=== PATIENT | female | born 1975 | race Caucasian/White ===

== ENCOUNTER 2019-06-19 08:19 | Outpatient (CLI) | payer OTHER, SELFPAY ==
--- NOTE | ~2019-06-19 | XR_ITS ---
EXAMINATION: XR abdomen/kub 1V INDICATION: Microscopic hematuria TECHNIQUE: Supine views of the abdomen were obtained on 2 radiographs. COMPARISON: CT from today FINDINGS: There are phleboliths of the pelvis. No urinary tract calculi are identified. A moderate vo lume of colonic stool is present. A surgical staple line is noted in the right mid abdomen. IMPRESSION: 1. No radiographic correlate for the patient's symptoms. Reviewed, dictated and finalized at location A. IER CHECKER
--- NOTE | ~2019-06-19 | CT_ITS ---
EXAMINATION: CT abdomen pelvis wo/w con DATE: 06/19/2019 09:28 INDICATION: Microscopic hematuria TECHNIQUE: Computed tomography (CT) of the abdomen and pelvis was performed without intravenous contr ast. CT of the abdomen and pelvis was then performed with a total of 130 mL Omnipaque 350 intravenous contrast using a double-bolus technique for simultaneous opacification of the renal parenchyma and r enal collecting system. The dose-length product (DLP) was 1231.18 mGy-cm. Automated exposure control and iterative reconstruction technique were employed. COMPARISON: 02/12/2019 FINDINGS: Minimal dependent atelectasis is present in the lung bases. The heart size is normal. The l iver, spleen, pancreas, and right adrenal gland are normal. There is thickening of the gallbladder fu ndus, consistent with a phrygian cap There is a 9 mm stable adenoma of the left adrenal gland. The ki dneys are unremarkable. No suspicious renal or urothelial lesion is identified. No stones are identif ied in the kidneys, ureters, or bladder. There is no hydronephrosis or hydroureter. The bladder is no rmal in appearance. No pathologically enlarged abdominal or pelvic lymph nodes are identified. There is no free intraperitoneal gas or evidence of bowel obstruction. Again noted are surgical changes of the distal small bowel/cecum. IMPRESSION: 1. No CT correlate for the patient's symptoms. Reviewed, dictated and finalized at location A. IDE DEALER SALES REPRESENTATIVE
== END 2019-06-19 08:20 | disposition home or self-care (01) ==
PROVIDERS: PCP Internal Medicine; Visit Provider Urology
DX: R31.29 Other microscopic hematuria (principal)
CPT/HCPCS: 74018; 74178; Q9967

== ENCOUNTER 2019-07-28 09:08 | Outpatient (CLI) | payer OTHER, SELFPAY ==
[2019-07-28 09:55] LABS: Basophils Percent Auto 0.3 % (0.2-1.2); Eosinophils Absolute Auto 0.1 K/mm3 (0-0.3); Eosinophils Percent Auto 1.7 % (0-4.4); Hematocrit 41.8 % (37.0-47.0); Immature Granulocyte Absolute 0.03 K/mm3 (0.00-0.031); Immature Granulocyte Percent A 0.5 % (0-0.5); Lymphocytes Absolute Auto 1.13 K/mm3 (0.9-3.2); Lymphocytes Percent Auto 18.8 % (18.3-44.2); Mean Corpuscular HGB Conc 33.5 g/dl (32-36); Mean Corpuscular Hemoglobin 35.4 pg (26-34); Mean Corpuscular Volume 105.6 fl (80-100); Mean Platelet Volume 10.6 fl (7.4-10.4); Monocytes Absolute Auto 0.4 K/mm3 (0.1-0.6); Monocytes Percent Auto 5.8 % (2.6-8.5); Neutrophils Absolute Auto 4.4 K/mm3 (1.3-6.7); Neutrophils Percent Auto 72.9 % (45.5-73.1); Platelet Count Result 265 k/mm3 (150-375); Red Blood Count 3.96 M/mm3 (4.2-5.4); Red Cell Distribution Width 13.4 % (11.5-14.5)
[2019-07-28 09:58] LABS: Add Urine Microscopic? YES; Appearance Urine Clear (Clear); Bilirubin Urine Negative (Negative); Blood Urine 1+ (Negative); Color Urine Colorless (Yellow); Glucose Urine UA Negative (Negative); Ketones Urine Negative (Negative); Leukocyte Esterase Ur Negative LEU/UL (Negative); Mucus Urine Rare /lpf; Nitrate Urine Negative (Negative); Protein Urine Negative (Negative); RBC Urine 0-2 /hpf (0-2); Squamous Epithelial Cell Urine Occasional /hpf (Few); Urobilinogen Urine Negative mg/dL (<2.0)
[2019-07-28 10:01] LABS: Specific Grav Ur 1.003 (1.001-1.035)
[2019-07-28 10:11] LABS: Alanine Aminotransferase 34 U/L (4-35); Albumin Level 4.2 g/dL (3.5-5.1); Alkaline Phosphatase 53 U/L (38-126); Aspartate Amino Transferase 28 U/L (14-36); Bilirubin,Total 0.3 mg/dL (0.2-1.3); Blood Urea Nitrogen 9 mg/dL (7-17); Calcium 8.8 mg/dL (8.4-10.2); Carbon Dioxide 30 mmol/L (22-30); Chloride 101 mmol/L (98-107); Cholesterol 129 mg/dL (0-200); Estimated Glomerular Filt Rate > 60; Glucose 89 mg/dL (65-105); HDL Direct 49 mg/dL; Potassium 3.7 mmol/L (3.4-5.0); Sodium 139 mmol/L (137-145); Triglycerides 124 mg/dL (<150)
[2019-07-28 10:21] LABS: LDL Cholesterol Direct 52 mg/dL
[2019-07-28 10:35] LABS: Vitamin D 25 Hydroxy 57.1 ng/mL
== END 2019-07-28 09:09 | disposition home or self-care (01) ==
PROVIDERS: PCP Internal Medicine; Visit Provider Nurse Practitioner
DX: Z13.228 Encounter for screening for other metabolic disorders (principal); Z13.220 Encounter for screening for lipoid disorders; N39.0 Urinary tract infection, site not specified; E55.9 Vitamin D deficiency, unspecified
CPT/HCPCS: 36415; 80053; 80061; 81001; 82306; 85025

== ENCOUNTER 2020-01-21 14:21 | Outpatient (CLI) | payer OTHER, SELFPAY ==
[2020-01-21 14:56] LABS: Add Urine Microscopic? YES; Appearance Urine Clear (Clear); Bacteria Urine Trace /hpf; Bilirubin Urine Negative (Negative); Blood Urine 1+ (Negative); Color Urine Colorless (Yellow); Glucose Urine UA Negative (Negative); Ketones Urine Negative (Negative); Leukocyte Esterase Ur Negative LEU/UL (Negative); Nitrate Urine Negative (Negative); Protein Urine Negative (Negative); Squamous Epithelial Cell Urine Occasional /hpf (Few); Urobilinogen Urine Negative mg/dL (<2.0); WBC Urine 0-3 /hpf
[2020-01-21 14:58] LABS: Specific Grav Ur 1.004 (1.001-1.035)
== END 2020-01-21 14:22 | disposition home or self-care (01) ==
PROVIDERS: PCP Internal Medicine; Visit Provider Nurse Practitioner
DX: R39.9 Unspecified symptoms and signs involving the genitourinary system (principal)
CPT/HCPCS: 81001

== ENCOUNTER 2020-10-03 09:38 | Outpatient (CLI) | payer OTHER, SELFPAY ==
[2020-10-03 10:01] LABS: Basophils Percent Auto 0.6 % (0.2-1.2); Eosinophils Absolute Auto 0.1 K/mm3 (0-0.3); Eosinophils Percent Auto 1.8 % (0-4.4); Hematocrit 38.8 % (37.0-47.0); Hemoglobin 13.3 g/dL (12.0-15.0); Immature Granulocyte Absolute 0.03 K/mm3 (0.00-0.031); Immature Granulocyte Percent A 0.5 % (0-0.5); Lymphocytes Absolute Auto 1.13 K/mm3 (0.9-3.2); Lymphocytes Percent Auto 18.3 % (18.3-44.2); Mean Corpuscular HGB Conc 34.3 g/dl (32-36); Mean Corpuscular Hemoglobin 35.3 pg (26-34); Mean Corpuscular Volume 102.9 fl (80-100); Mean Platelet Volume 10.3 fl (7.4-10.4); Monocytes Absolute Auto 0.6 K/mm3 (0.1-0.6); Monocytes Percent Auto 9.1 % (2.6-8.5); Neutrophils Absolute Auto 4.3 K/mm3 (1.3-6.7); Neutrophils Percent Auto 69.7 % (45.5-73.1); Platelet Count Result 271 k/mm3 (150-375); Red Blood Count 3.77 M/mm3 (4.2-5.4); Red Cell Distribution Width 13.4 % (11.5-14.5); White Blood Count 6.2 K/mm3 (4.5-10.0)
[2020-10-03 10:16] LABS: Alanine Aminotransferase 39 U/L (4-35); Albumin Level 4.1 g/dL (3.5-5.1); Alkaline Phosphatase 45 U/L (38-126); Anion Gap 4 mmol/L (8-16); Aspartate Amino Transferase 32 U/L (14-36); Bilirubin,Total 0.8 mg/dL (0.2-1.3); Blood Urea Nitrogen 9 mg/dL (7-17); Calcium 9.1 mg/dL (8.4-10.2); Carbon Dioxide 30 mmol/L (22-30); Chloride 104 mmol/L (98-107); Cholesterol 120 mg/dL (0-200); Estimated Glomerular Filt Rate > 60; Glucose 89 mg/dL (65-105); HDL Direct 44 mg/dL; Potassium 3.8 mmol/L (3.4-5.0); Sodium 138 mmol/L (137-145); Triglycerides 73 mg/dL (<150)
[2020-10-03 10:27] LABS: LDL Cholesterol Direct 54 mg/dL
[2020-10-03 11:52] LABS: Vitamin D 25 Hydroxy 52.1 ng/mL
== END 2020-10-03 09:39 | disposition home or self-care (01) ==
LOC: ANHLAB 09:43
PROVIDERS: PCP Internal Medicine; Visit Provider Clinical Nurse Specialist
DX: Z13.220 Encounter for screening for lipoid disorders (principal); Z13.228 Encounter for screening for other metabolic disorders; E55.9 Vitamin D deficiency, unspecified; E04.1 Nontoxic single thyroid nodule
CPT/HCPCS: 36415; 80053; 80061; 82306; 84443; 85025

== ENCOUNTER 2021-09-23 08:58 | Outpatient (CLI) | payer OTHER, SELFPAY ==
[2021-09-23 09:14] LABS: Basophils Percent Auto 0.4 % (0.2-1.2); Eosinophils Absolute Auto 0.2 K/mm3 (0-0.3); Eosinophils Percent Auto 2.8 % (0-4.4); Hematocrit 40.8 % (37.0-47.0); Hemoglobin 13.5 g/dL (12.0-15.0); Immature Granulocyte Absolute 0.03 K/mm3 (0.00-0.031); Immature Granulocyte Percent A 0.4 % (0-0.5); Lymphocytes Absolute Auto 1.44 K/mm3 (0.9-3.2); Lymphocytes Percent Auto 21.1 % (18.3-44.2); Mean Corpuscular HGB Conc 33.1 g/dl (32-36); Mean Corpuscular Hemoglobin 35.7 pg (26-34); Mean Corpuscular Volume 107.9 fl (80-100); Mean Platelet Volume 10.2 fl (7.4-10.4); Monocytes Absolute Auto 0.5 K/mm3 (0.1-0.6); Monocytes Percent Auto 7.5 % (2.6-8.5); Neutrophils Absolute Auto 4.6 K/mm3 (1.3-6.7); Neutrophils Percent Auto 67.8 % (45.5-73.1); Platelet Count Result 278 k/mm3 (150-375); Red Blood Count 3.78 M/mm3 (4.2-5.4); Red Cell Distribution Width 13.7 % (11.5-14.5); White Blood Count 6.8 K/mm3 (4.5-10.0)
[2021-09-23 09:29] LABS: Alanine Aminotransferase 20 U/L (4-35); Albumin Level 3.9 g/dL (3.5-5.1); Alkaline Phosphatase 50 U/L (38-126); Anion Gap 4 mmol/L (8-16); Aspartate Amino Transferase 24 U/L (14-36); Bilirubin,Total 0.4 mg/dL (0.2-1.3); Blood Urea Nitrogen 12 mg/dL (7-17); Calcium 8.8 mg/dL (8.4-10.2); Carbon Dioxide 30 mmol/L (22-30); Chloride 104 mmol/L (98-107); Cholesterol 129 mg/dL (0-200); Estimated Glomerular Filt Rate > 60; Glucose 97 mg/dL (65-110); HDL Direct 42 mg/dL; Potassium 4.1 mmol/L (3.4-5.0); Sodium 138 mmol/L (137-145); Triglycerides 90 mg/dL (<150)
[2021-09-23 09:40] LABS: LDL Cholesterol Direct 50 mg/dL
[2021-09-23 09:59] LABS: Vitamin D 25 Hydroxy 54.2 ng/mL
== END 2021-09-23 08:59 | disposition home or self-care (01) ==
LOC: ANHLAB 09:00
PROVIDERS: PCP Internal Medicine; Visit Provider Clinical Nurse Specialist
DX: Z13.228 Encounter for screening for other metabolic disorders (principal); E04.1 Nontoxic single thyroid nodule; Z13.220 Encounter for screening for lipoid disorders; E55.9 Vitamin D deficiency, unspecified
CPT/HCPCS: 36415; 80053; 80061; 82306; 84443; 85025

== ENCOUNTER 2022-10-08 08:29 | Outpatient (CLI) | payer OTHER, SELFPAY ==
[2022-10-08 09:46] LABS: Basophils Percent Auto 0.6 % (0.2-1.2); Eosinophils Absolute Auto 0.2 K/mm3 (0-0.3); Eosinophils Percent Auto 3.8 % (0-4.4); Hematocrit 40.3 % (37.0-47.0); Hemoglobin 13.7 g/dL (12.0-15.0); Immature Granulocyte Absolute 0.01 K/mm3 (0.00-0.031); Immature Granulocyte Percent A 0.2 % (0-0.5); Lymphocytes Absolute Auto 1.63 K/mm3 (0.9-3.2); Lymphocytes Percent Auto 32.7 % (18.3-44.2); Mean Corpuscular Volume 105.8 fl (80-100); Mean Platelet Volume 10.7 fl (7.4-10.4); Monocytes Absolute Auto 0.3 K/mm3 (0.1-0.6); Monocytes Percent Auto 5.2 % (2.6-8.5); Neutrophils Absolute Auto 2.9 K/mm3 (1.3-6.7); Neutrophils Percent Auto 57.5 % (45.5-73.1); Platelet Count Result 349 k/mm3 (150-375); Red Blood Count 3.81 M/mm3 (4.2-5.4); Red Cell Distribution Width 13.4 % (11.5-14.5)
[2022-10-08 10:02] LABS: Alanine Aminotransferase 25 U/L (6-35); Albumin Level 4.3 g/dL (3.5-5.1); Alkaline Phosphatase 54 U/L (38-126); Anion Gap 8 mmol/L (8-16); Aspartate Amino Transferase 24 U/L (14-36); Bilirubin,Total 0.7 mg/dL (0.2-1.3); Blood Urea Nitrogen 9 mg/dL (7-17); Calcium 8.6 mg/dL (8.4-10.2); Carbon Dioxide 29 mmol/L (22-30); Chloride 103 mmol/L (98-107); Cholesterol 123 mg/dL (0-200); Estimated Glomerular Filt Rate > 60; Glucose 94 mg/dL (65-110); HDL Direct 48 mg/dL; Potassium 3.5 mmol/L (3.4-5.0); Sodium 140 mmol/L (137-145); Triglycerides 79 mg/dL (<150)
[2022-10-08 10:14] LABS: LDL Cholesterol Direct 52 mg/dL
[2022-10-08 10:28] LABS: Free T4 Free Thyroxine 0.69 ng/mL (0.78-2.19); Vitamin D 25 Hydroxy 56.1 ng/mL
[2022-10-12 03:45] LABS: Thyroid Peroxidase Antibodies <1 IU/mL (<9)
== END 2022-10-08 08:30 | disposition home or self-care (01) ==
PROVIDERS: PCP Internal Medicine; Visit Provider Clinical Nurse Specialist
DX: E55.9 Vitamin D deficiency, unspecified (principal); Z13.220 Encounter for screening for lipoid disorders; E04.1 Nontoxic single thyroid nodule; K50.919 Crohn's disease, unspecified, with unspecified complications
CPT/HCPCS: 36415; 80053; 80061; 82306; 84439; 84443; 85025; 86376

== ENCOUNTER 2023-10-10 07:20 | Outpatient (CLI) | payer OTHER, SELFPAY ==
[2023-10-10 08:00] LABS: Basophils Percent Auto 0.3 % (0.2-1.2); Eosinophils Absolute Auto 0.1 K/mm3 (0-0.3); Hematocrit 41.3 % (37.0-47.0); Hemoglobin 14.1 g/dL (12.0-15.0); Immature Granulocyte Absolute 0.03 K/mm3 (0.00-0.031); Immature Granulocyte Percent A 0.4 % (0-0.5); Lymphocytes Absolute Auto 1.59 K/mm3 (0.9-3.2); Lymphocytes Percent Auto 22.6 % (18.3-44.2); Mean Corpuscular HGB Conc 34.1 g/dl (32-36); Mean Corpuscular Hemoglobin 35.3 pg (26-34); Mean Corpuscular Volume 103.5 fl (80-100); Mean Platelet Volume 10.5 fl (7.4-10.4); Monocytes Absolute Auto 0.4 K/mm3 (0.1-0.6); Monocytes Percent Auto 5.5 % (2.6-8.5); Neutrophils Absolute Auto 4.9 K/mm3 (1.3-6.7); Neutrophils Percent Auto 70.2 % (45.5-73.1); Platelet Count Result 239 k/mm3 (150-375); Red Blood Count 3.99 M/mm3 (4.2-5.4); Red Cell Distribution Width 14.4 % (11.5-14.5)
[2023-10-10 08:24] LABS: Alanine Aminotransferase 20 U/L (6-35); Albumin Level 4.3 g/dL (3.5-5.1); Alkaline Phosphatase 52 U/L (38-126); Anion Gap 7 mmol/L (4-12); Aspartate Amino Transferase 21 U/L (14-36); Bilirubin,Total 0.7 mg/dL (0.2-1.3); Blood Urea Nitrogen 13 mg/dL (7-17); Carbon Dioxide 25 mmol/L (22-30); Chloride 105 mmol/L (98-107); Cholesterol 130 mg/dL (0-200); Estimated Glomerular Filt Rate > 60; Glucose 100 mg/dL (65-110); HDL Direct 55 mg/dL; Potassium 3.8 mmol/L (3.4-5.0); Sodium 137 mmol/L (137-145); Triglycerides 69 mg/dL (<150)
[2023-10-10 08:35] LABS: LDL Cholesterol Direct 63 mg/dL
[2023-10-10 08:39] LABS: Vitamin D 25 Hydroxy 65.7 ng/mL
== END 2023-10-10 07:21 | disposition home or self-care (01) ==
PROVIDERS: PCP Internal Medicine; Visit Provider Nurse Practitioner
DX: E55.9 Vitamin D deficiency, unspecified (principal); E05.90 Thyrotoxicosis, unspecified without thyrotoxic crisis or storm; Z13.29 Encounter for screening for other suspected endocrine disorder; Z13.220 Encounter for screening for lipoid disorders
CPT/HCPCS: 36415; 80053; 80061; 82306; 84439; 84443; 85025

== ENCOUNTER 2024-03-18 13:55 | Outpatient (CLI) | payer OTHER, SELFPAY ==
[2024-03-18 14:16] LABS: Basophils Percent Auto 0.5 % (0.2-1.2); Eosinophils Absolute Auto 0.1 K/mm3 (0-0.3); Eosinophils Percent Auto 1.4 % (0-4.4); Hematocrit 39.3 % (37.0-47.0); Hemoglobin 13.3 g/dL (12.0-15.0); Immature Granulocyte Absolute 0.04 K/mm3 (0.00-0.031); Immature Granulocyte Percent A 0.5 % (0-0.5); Lymphocytes Absolute Auto 1.92 K/mm3 (0.9-3.2); Lymphocytes Percent Auto 24.1 % (18.3-44.2); Mean Corpuscular HGB Conc 33.8 g/dl (32-36); Mean Corpuscular Hemoglobin 35.7 pg (26-34); Mean Corpuscular Volume 105.4 fl (80-100); Mean Platelet Volume 10.5 fl (7.4-10.4); Monocytes Absolute Auto 0.6 K/mm3 (0.1-0.6); Neutrophils Absolute Auto 5.2 K/mm3 (1.3-6.7); Neutrophils Percent Auto 65.5 % (45.5-73.1); Platelet Count Result 300 k/mm3 (150-375); Red Blood Count 3.73 M/mm3 (4.2-5.4); Red Cell Distribution Width 13.2 % (11.5-14.5)
[2024-03-18 14:25] LABS: Alanine Aminotransferase 34 U/L (6-35); Albumin Level 4.2 g/dL (3.5-5.1); Alkaline Phosphatase 61 U/L (38-126); Anion Gap 7 mmol/L (4-12); Aspartate Amino Transferase 32 U/L (14-36); Bilirubin,Total 0.5 mg/dL (0.2-1.3); Blood Urea Nitrogen 8 mg/dL (7-17); Calcium 8.8 mg/dL (8.4-10.2); Carbon Dioxide 26 mmol/L (22-30); Chloride 105 mmol/L (98-107); Estimated Glomerular Filt Rate > 60; Glucose 104 mg/dL (65-110); Potassium 3.6 mmol/L (3.4-5.0); Sodium 138 mmol/L (137-145)
[2024-03-18 14:48] LABS: Platelet Estimate Adequate (Adequate)
[2024-03-18 14:50] LABS: Schistocytes None Seen
[2024-03-18 14:51] LABS: Free T4 Free Thyroxine 0.81 ng/mL (0.78-2.19); Macrocytosis 1+ (NORMAL)
[2024-03-18 16:57] LABS: Iron 71 ug/dL (37-170)
[2024-03-18 17:07] LABS: Percent Iron Saturation 22 % (20-50)
[2024-03-20 05:58] LABS: Triiodothyronine T3 Free 2.9 pg/mL (2.3-4.2)
== END 2024-03-18 13:56 | disposition home or self-care (01) ==
LOC: ANHLAB 13:57
PROVIDERS: PCP Internal Medicine; Visit Provider Nurse Practitioner
DX: E05.90 Thyrotoxicosis, unspecified without thyrotoxic crisis or storm (principal); R51.9 Headache, unspecified; D64.9 Anemia, unspecified
CPT/HCPCS: 36415; 80053; 82728; 83540; 83550; 84439; 84443; 84481; 85025

== ENCOUNTER 2024-05-27 10:43 | Outpatient (CLI) | payer OTHER, SELFPAY ==
[2024-05-27 12:47] LABS: Add Urine Microscopic? YES; Appearance Urine Clear (Clear); Bacteria Urine None Seen /hpf; Bilirubin Urine Negative (Negative); Blood Urine Trace (Negative); Color Urine Yellow (Yellow); Glucose Urine UA Negative (Negative); Ketones Urine Negative (Negative); Leukocyte Esterase Ur Negative LEU/UL (Negative); Nitrate Urine Negative (Negative); Non Pathogenic Casts 0-2; Protein Urine Negative (Negative); RBC Urine 0-2 /hpf (0-2); Specific Grav Ur 1.004 (1.001-1.035); Squamous Epithelial Cell Urine None Seen /hpf (Few); Urobilinogen Urine 0.2 mg/dL (<2.0); WBC Urine 0-5 /hpf (0-3)
== END 2024-05-27 10:44 | disposition home or self-care (01) ==
LOC: ANHGOSHLAB 10:44
PROVIDERS: PCP Internal Medicine; Visit Provider Nurse Practitioner
DX: R35.0 Frequency of micturition (principal)
CPT/HCPCS: 81001

== ENCOUNTER 2024-05-28 13:09 | Outpatient (CLI) | payer OTHER, SELFPAY ==
[2024-05-30 07:05] LABS: FSH 7.9 mIU/mL
[2024-05-30 07:44] LABS: ANA Cascade Screen NEGATIVE (NEGATIVE)
== END 2024-05-28 13:10 | disposition home or self-care (01) ==
LOC: ANHLAB 13:10
PROVIDERS: PCP Nurse Practitioner; Referring Provider Nurse Practitioner; Visit Provider Student in an Organized Health Care Education/Training Program
DX: N95.1 Menopausal and female climacteric states (principal); M25.50 Pain in unspecified joint
CPT/HCPCS: 36415; 82670; 83001; 84443; 86038; 86225; 86235; 86364

== ENCOUNTER 2024-07-20 12:46 | Outpatient (CLI) | payer OTHER, SELFPAY | END 2024-07-20 12:47 | disposition home or self-care (01) | PROVIDERS: PCP Nurse Practitioner; Visit Provider Nurse Practitioner | DX: R51.9 Headache, unspecified (principal) | CPT/HCPCS: 70553; A9579 ==

== ENCOUNTER 2024-12-11 07:38 | Outpatient (CLI) | payer OTHER, SELFPAY ==
--- OUTSIDE RECORDS SUMMARY | 2024-12-11 07:42 | XMS_ITS | Encounter Summary ---
Author Organization [facility] Address [address] [place] [address] Phone Care Team Providers Care Sulfuric Acid Plant Supervisor Name Role Phone Pravin Lewis DO Primary Care Provider [phone] Encounter Details Date Type Department Care Team (Late st Contact Info) Description 11/10/2024 Results Follow-Up [facility] [address] [place] [address] Medical Office Building [address] [place] [address] Leigha Sheldon MD 1 [facility] [address] [place] [address] CBC without differential, CRP (acute phase), Comprehensive metabolic panel Social History Tobacco Use Types Packs/Day Years Used Date Smoking Tobacco: Former Cigarettes Q uit: 1998 Smokeless Tobacco: Never Alcohol Use Standard Drinks/Week Comments Yes 0 (1 standard drink = 0.6 oz pur e alcohol) very rarely AUDIT-C Answer Date Recorded Q1: How often do you have a drink containing alcohol? Never 03/06/2024 Q2: How many drinks containi ng alcohol do you have on a typical day when you are drinking? Patient does not drink Q3: How often do you have si x or more drinks on one occasion? Never 03/06/2024 Personal Safety Answer Date Recorded Have you ever been in or are you currently in a harmful physical or emotional relationship or is someone making you feel afraid or unsafe? 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 documented in this encounter Plan of Treatment Not on file documented as of this encounter Visit Diagnoses Not on filedocumented in this encounter Care Teams Sulfuric Acid Plant Supervisor Relationship Specialty Start Date End Date Pravin Lewis DO PCP - General 07/06/16 documented as of this encounter
--- OUTSIDE RECORDS SUMMARY | 2024-12-11 07:42 | XMS_ITS | Clinical Summary ---
Author Organization [facility] Address [address] [place] [address] Care Team Providers Care Brew House Supervisor Name Role Phone Pravin Lewis DO Primary Care Provider [phone] Source Comments [facility],non-owned Affiliates and Associated Physician Practices is amultiple site organization consisting of ambulatory clinics and hospital sitesin [place], [place], [place] and [place]. This disclosure is being madepursuant to the Care Everywhere program and may not contain all information available regarding this patient. Last updated 18.[facility] Allergies Active Allergy Reactions Criticality Noted Date Comments Sulfa Drugs Rash Medium 11/28/2017 Medications * Be aware that medications may not be up to date on this document. Alwaysverify current medications with the patient. InFLIXimab (REMICADE IV) Active Mesalamine (LIALDA PO) Active ALLOPURINOL PO Activ e MERCAPTOPURINE PO Ac tive Cetirizine HCl (ZYRTEC PO) Active IBUPROFEN PO Active TP-Ntdwwvuzkkief-V cetaminophen (THERAFLU SEVERE COLD PO) Active Active Problems No known active problems Family History Relation Name Status Comments Father Alive Mother Alive Social History Tobacco Use Types Packs/Day Years Used Date Smoking Tobacco: Former Smokeless Tobacco: Never Alcohol Use Standard Drinks/Week Comments No 0 (1 standard drink = 0.6 oz pur e alcohol) Comments No Sex and Gender Information Value Date Recorded Sex Assigned at Not on file Legal Sex Female 6:06 AM POCKET MARKER Gender Identity Female 08/15/2018 5:53 PM CDT Sexual Orientation Not on file Last Filed Vital Signs Vital Sign Reading Time Taken Comments Blood Pressure 110/78 03/29/2019 9:43 AM POCKET MARKER Pulse 83 03/29/2019 9:43 AM POCKET MARKER Temperature 36.7 C (98.1 F) 03/29/2019 9:43 AM POCKET MARKER Respiratory Rate 16 03/29/2019 9:43 AM POCKET MARKER Oxygen Saturation 96% 03/29/2019 9:43 AM POCKET MARKER Inhaled Oxygen Concentration - - Weight 77.1 kg (170 lb) 03/29/2019 9:43 AM POCKET MARKER Height 162.6 cm (5' 4) 03/29/2019 9:43 AM POCKET MARKER Body Mass Index 29.18 03/29/2019 9:43 AM POCKET MARKER Plan of Treatment Health Maintenance Due Date Last Done Comments COLOGUARD (AGES 45-75) - COLON CA SCREENING 1974 COLON MONITORING 1974 COLONOSCOPY - COLON CA SCREENING 1974 CT COLONOGRAPHY - COLON CA SCREENING 1974 Colorectal Cancer Screening 1974 FIT - COLON CA SCREENING 1974 FLEX SIG - COLON CA SCREENING 1974 LIPID TESTING 1974 HIV SCREENING 1989 HEPATITIS C SCREENING 05/20/1992 DTAP/TDAP/TD VACCINES (1 - Tdap) 1993 HEPATITIS B VACCINE (1 of 3 - 19+ 3-dose series) 1993 SCREENING FOR DIABETES 11/28/2017 MAMMOGRAM 06/20/2022 06/20/2020 COVID-19 VACCINE (1 - 2023- season) 2024 DEPRESSION SCREENING 05/20/2024 PNEUMOCOCCAL VACCINE 50+ (1 of 1 - PCV) 2024 ZOSTER VACCINE (1 of 2) 2024 INFLUENZA VACCINE (#1) 2025 0, 01/11/2019, 02/10/2018, Additional history exists HIB VACCINE Aged Out No longer eligi ble based on patient's age to complete this topic HPV VACCINE Aged Out No longer eligi ble based on patient's age to complete this topic MENINGOCOCCAL (Group B) VACCINE SHARED DECISION-MAKING Aged Out No longer eligible based on patient's age to complete this topic MENINGOCOCCAL GROUPS A/C/Y/W VACCINE Aged Out No longer eligible based on patient's age to complete this topic Insurance [facility] Care Teams Brew House Supervisor Relationship Specialty Start Date End Date Pravin Lewis DO PCP - General Internal Medicine 11/28/17
--- OUTSIDE RECORDS SUMMARY | 2024-12-11 07:42 | XMS_ITS | Clinical Summary ---
Author Organization [facility] Address [address] [place] [id number] Care Team Providers Care Steel Unloader Name Role Phone Unavailable Primary Care Provider Unavailabl e Social History Tobacco Use Types Packs/Day Years Used Date Smoking Tobacco: Never Assessed Comments Unknown Sex and Gender Information Value Date Recorded Sex Assigned at Not on file Legal Sex Female 7:39 PM CDT Gender Identity Not on file Sexual Orientation Not on file Plan of Treatment Health Maintenance Due Date Last Done Comments Cervical Cancer Screening Pa p Smear (Age 30 to 64) Every 3 Years 1974 Colorectal Cancer Screening Colonoscopy (10 Years) 1974 Annual Physical 1977 Hepatitis C 1992 DTaP, Tdap and Td Vaccines ( 1 - Tdap) 1993 Hepatitis B Vaccines (1 of 3 - 19+ 3-dose series) 1993 Cervical Cancer Screening Pa p with HPV Testing (Age 30 to 64) Every 5 Years 2004 Cervical Cancer Screening with HPV 2004 Mammogram Screening 2014 COVID-19 Vaccine ( - 2023-2 5 season) 2024 Pneumococcal Vaccine: 50+ Ye ars (1 of 1 - PCV) 2024 Zoster Vaccines (1 of 2) 2024 Meningococcal B Vaccine Aged Out No l onger eligible based on patient's age to complete this topic Meningococcal Vaccine Aged Out No noel hubert eligible based on patient's age to complete this topic RSV Immunizations Under 20 Months Aged Out No longer eligible based on patient's age to complete this topic
--- OUTSIDE RECORDS SUMMARY | 2024-12-11 07:42 | XMS_ITS | Clinical Summary ---
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 Gender Identity Not on file Sexual Orientation Not on file Plan of Treatment Health Maintenance Due Date Last Done Comments Hepatitis C Virus (HCV) Screening 1974 TdaP Immunization 1974 Hepatitis B Immunization (1 of 3 - 19+ 3-dose series) 1993 Pap Smear 1995 Cervical Cancer Screening (CCS) 2004 HPV/Cotest 2004 Cologuard 2019 Colonoscopy 2019 Colorectal Cancer Screening 2019 Immunochemical Fecal Occult Blood 2019 SARS-COV-2 Immunization ( season) 2024 06/28/2021, 12/27/2020, 12/06/2020 Pneumococcal Immunization (50+ years) (1 of 1 - PCV) 2024 Zoster Immunization (1 of 2) 2024 Influenza Immunization (#1) 2025 09/0 10/2019, 01/11/2019, 02/10/2018, Additional history exists Respiratory Syncytial Virus (RSV) Immunization (Adult) (1 - 1-dose 75+ series) 2049 Human Papillomavirus (HPV) Immunization Aged Out No longer eligible based on patient's age to complete this topic Meningococcal Immunization (ACWY) Aged Out No longer eligible based on patient's age to complete this topic Rotavirus Immunization Aged Out No lo nger eligible based on patient's age to complete this topic
--- OUTSIDE RECORDS SUMMARY | 2024-12-11 07:42 | XMS_ITS | Referral Summary ---
Author Organization [facility] Address [address] [place] [address] Care Team Providers Care Curriculum Specialist Name Role Phone Pravin Lewis DO Primary Care Provider [phone] Encounters Date Type Department Care Team Description 5 Results Follow-Up [facility] Gastroenterology [address] [place] [address] Medical Office Building [address] [place] [address] Leigha Sheldon MD CBC without differential, CRP (acute phase), Comprehensive metabolic panel 5 12:30 PM CDT Lab [facility] Endocrinology Metabolism and Lipid [facility] 5th [place] [address] [place] [id number] Crohn's disease of ileum with complication (HCC) [K50.019] (Primary Dx) 5 9:30 AM CDT Infusion [facility] Infusion Therapy [facility] 5th [place] [address] [place] [phone] Crohn's disease of ileum with complication (HCC) (Primary Dx) 5 Telephone [facility] [address] [place] [id number] Jess Andujar RN 5 Orders Only [facility] Gastroenter[facility] [address] [facility] 12[address] [place] [address] [place] [address] Myesha Flores RN Crohn's disease with complication, unspecified gastrointestinal tract location (HCC) (Primary Dx); High risk medications (not anticoagulants) long-term use; Routine health maintenance 5 Telephone [facility] ([facility]) [address] [place] [address] Bambi Acevedo RN 5 Documentation [facility] [address] [facility] [address]th [place] [address] [place] [address] Daylin Shah MD 5 12:51 PM CDT - 5 11:59 PM CDT Hospital Encounter [facility] [address] [place] [address] Discharge Disposition: Discharge to home or self care 5 1:00 PM CDT Infusion [facility] Infusion Therapy [address] [facility] 5th [place] [address] [place] [address] Crohn's disease of ileum with complication (HCC) (Primary Dx) from Last 3 Months Allergies Active Allergy Reactions Criticality Noted Date Comments Codeine Mental status changes Low Sulfa (Sulfonamide Antibiotics) Hives,Rash Medium 12/2014 Sulfanilamide Unknown Low Medications calcium carbonate-vitamin D3 (CALCIUM 500 + D) 1,250mg (500mg elemental) - 200 units per tablet 1 tablet daily 0 013 Active Lactobacillus acidophilus (PROBIOTIC ORAL) Take by mouth daily before breakfast Active cyclobenzaprine (FLEXERIL) 5 mg tablet Take 1 tablet (5 mg total) by mouth 2 (two) times a day as needed for muscle spasms Active triamcinolone (KENALOG) 0.1 % cream 1 g as needed 020 Active -U 106.5-1 mg capsuleIndications: Crohn's disease of ileum with complication (HCC) TAKE ONE CAPSULE BY MOUTH ONCE DAILY 90 capsule 3 021 Active lutein-zeaxanthin 25-5 mg capsule Take 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 Active traMADoL (ULTRAM) 50 mg tablet Take 1 tablet (50 mg total) by mouth Active tazarotene (AVAGE) 0.1 % cream Apply 1 application topically nightly Active celecoxib (CeleBREX) 200 mg capsule Take 1 capsule (200 mg total) by mouth 2 (two) times a day as needed for pain 022 Active Winlevi 1 % cream as needed 023 Active cyanocobalamin (Vitamin B-12) 100 mcg tablet Take 1 tablet (100 mcg total) by mouth 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 Infused at: [facility] 5C. 40 mL 5 023 Active polyethylene glycol (GoLYTELY) 236-22.74-6.74 -5.86 gram solution MIX AND DRINK INSTRUCTED FOR BOWEL PREP 4000 mL Active Additional Information Patient not taking.Reported on 08/03/2024 butalbital-acetamin ophen-caffeine (ESGIC) 50-325-40 mg per tabletIndications:N onintractable headache, unspecified chronicity pattern, unspecified headache type Take 1 tablet by mouth every 4 (four) hours as needed for headaches 10 tablet Active hyoscyamine (LEVSIN) 0.125 mg tabletIndications:C rohn's disease of ileum with complication (HCC) Take 1 tablet (0.125 mg total) by mouth every 4 (four) hours as needed for cramping or diarrhea 30 tablet 2 024 Active hydrOXYzine (ATARAX) 25 mg tabletIndications:I tching due to drug TAKE 1 TABLET BY MOUTH EVERY 6 HOURS NEEDED FOR ITCHING 120 tablet 024 Active escitalopram (LEXAPRO) 5 mg tablet Take 1 tablet (5 mg total) by mouth daily Active linezolid (ZYVOX) 600 mg tablet Take 1 tablet (600 mg total) by mouth 2 (two) times a day 10 tablet 025 Active allopurinoL (ZYLOPRIM) 100 mg tabletIndications:C rohn's disease with complication, unspecified gastrointestinal tract location (HCC) Take 1 tablet by mouth once daily 90 tablet 025 Active mercaptopurine (PURINETHOL) 50 mg tabletIndications:C rohn's disease of ileum with complication (HCC) Take 1/2 (one-half) tablet by mouth once daily 45 tablet 025 Active Apriso 0.375 gram 24 hr capsuleIndications: Crohn's disease with complication, unspecified gastrointestinal tract location (HCC),High risk medications (not anticoagulants) long-term use Take 1 capsule by mouth twice daily 180 capsule 1 025 Active omeprazole (PriLOSEC) 20 mg capsuleIndications: Crohn's disease of ileum with complication (HCC),Gastroesophag eal reflux disease, unspecified whether esophagitis present TAKE 1 CAPSULE BY MOUTH TWICE DAILY WITH MEALS 180 capsule 025 Active omeprazole (PriLOSEC) 20 mg capsuleIndications: Crohn's disease of ileum with complication (HCC),Gastroesophag eal reflux disease, unspecified whether esophagitis present Take 1 capsule (20 mg total) by mouth 2 (two) times a day with meals 180 capsule 1 025 2024 Discontinued Apriso 0.375 gram 24 hr capsuleIndications: Crohn's disease with complication, unspecified gastrointestinal tract location (HCC),High risk medications (not anticoagulants) long-term use Take 1 capsule by mouth twice daily 180 capsule 025 2024 Discontinued Active Problems Problem Noted Date Diagnosed Date Colon cancer screening 01/08/2024 Cholecystitis 08/03/2022 Overview (08/03/2022): Added automatically from request for surgery [id number] High risk medications (not anticoagulants) long- term use 09/30/2020 Overview (01/07/2024): Currently on IFX and 6MP. Levels drawn 07/2023 showed therapeutic dosing. Myalgia 09/30/2020 Abnormal thyroid blood test 02/10/2019 Crohn's disease of ileum with complication 09/28 Overview (01/07/2024): Year of diagnosis: 2011. Year symptoms began: 2011. Phenotype: Penetrating (B3) with perianal disease. Distribution: ileocolonic (L3) without upper GI disease (L4). Extraintestinal manifestations: erythema nodosum. Complications: TI stricture with transsphincteric perianal fistula. Prior treatments: n/a. Current treatment: IFX, mercaptopurine. Prior surgeries: ileocolonic resection for that ileal stricture with approximately 20 cm of the small bowel removed in May 2014. Endoscopies: 02/2022 colonoscopy showed mucosal remission. Imaging: none. Family History: none. Obesity, diabetes, and hypertension syndrome Overview (08/22/2016): DYSMETABOLIC SYNDROME X Non-toxic multinodular goiter 10/03/2013 Overview (08/24/2016): NONTOX MULTINODUL GOITER Immunizations Immunization Administration Dates Next Due Hep B Vaccine 04/03/2012,11/07/2011,10/04/2011 Hep B, Adolescent or Pediatric 04/03/2012 Influenza, Quadrivalent, Spl it, Intramuscular 01/11/2019 Influenza, Quadrivalent, Spl it, Preservative Free, Intramuscular 01/24/2020,01/11/2019,02/10/2018 Influenza, Trivalent, High D ose, Split, Preservative Free, Intramuscular 02/26/2016 Influenza, Trivalent, IM (MDV) 08/05/2012 Influenza, Trivalent, Preser vative Free, Intramuscular 02/25/2016,03/12/2015 Pfizer SARS-CoV-2 Monovalent Vaccination (12+ Yrs) PURPLE 12/27/2020,12/06/2020 Pneumococcal Conjugate PCV 13 01/31/2017 Pneumococcal Polysaccharide PPV23 07/10/2023,,07/31/2012 ZOSTER Recombinant 10/26/2022,07/09/2022 Social History Tobacco Use Types Packs/Day Years Used Date Smoking Tobacco: Former Cigarettes Q uit: 1998 Smokeless Tobacco: Never Tobacco Cessation:Counseling Given: Not Answered Alcohol Use Standard Drinks/Week Comments Yes 0 [...] on file 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 Gender Identity Female 11/02/2021 7:32 AM CDT Sexual Orientation Straight 11/02/2021 7: 32 AM CDT Last Filed Vital Signs Vital Sign Reading Time Taken Comments Blood Pressure 133/87 11/06/2024 9:27 AM CDT Pulse 100 11/06/2024 9:27 AM CDT Temperature 36.9 C (98.4 F) 11/06/2024 9:27 AM CDT Respiratory Rate 14 11/06/2024 9:27 AM CDT Oxygen Saturation 95% 11/06/2024 9:42 AM CDT Inhaled Oxygen Concentration - - Weight 85.2 kg (187 lb 12.8 oz) 11/06/2024 9:27 AM CDT Height 162.6 cm (5' 4) 08/03/2024 9:45 AM CDT Body Mass Index 32.24 08/03/2024 9:45 AM CDT Plan of Treatment Not on file Medical Devices Implanted Type Area Community Support Worker Device Identifier Shelf Expiration Date Model / Serial / Lot Clip Med-Lg Plymr Internal Clips 6 Cartrdg Symmetry [place] - [id number] Implanted:Qty: 1 on 09/20/2022 by Wing Lee MD PhD at [facility] Clip N/A: Abdomen [employer] 01/19/2024 [id number] / / [id number] Procedures Procedure Name Priority Date/Time Associated Diagnosis Comments COMPREHENSIVE METABOLIC PANEL Routine 11/06/2024 9:39 AM CDT Crohn's disease of ileum with complication (HCC) CRP (ACUTE PHASE) Routine 11/06/2024 9:3 9 AM CDT Crohn's disease of ileum with complication (HCC) CBC WITHOUT DIFFERENTIAL Routine 11/06/2024 9:39 AM CDT Crohn's disease of ileum with complication (HCC) TB TEST, QUANTIFERON GOLD Routine 09/18/2024 2:00 PM CDT Crohn's disease with complication, unspecified gastrointestinal tract location (HCC) High risk medications (not anticoagulants) long-term use Routine health maintenance T-SPOT.TB Routine 09/11/2024 12:51 PM CDT Crohn's disease of ileum with complication (HCC) SCREENING MAMMOGRAM BILATERAL W SEGUNDO Schedule Routine, Read Routine (OP Routine) 06/23/2024 12:42 PM POULTRYMAN Screening mammogram, encounter for COLONOSCOPY 03/06/2024 7:59 AM CDT from Last 3 Months or Most Recently Relevant to Health Maintenance Results * (ABNORMAL) CBC without differential (11/06/2024 9:39 AM CDT) White Blood Count 6.9 3.6 - 11.2 K/uL [facility] RBC 3.75 3.63 - 4.92 M/uL [facility] Hemoglobin 13.4 11.9 - 15.5 g/dL [facility] Hematocrit 39.6 36.1 - 44.3 % [facility] MCV 105.4(H) 80.0 - 97.6 fL [facility] MCH 35.7(H) 26.7 - 33.7 pg [facility] MCHC 33.9 32.7 - 35.5 g/dL [facility] RBC Dist Width 14.5 12.3 - 17.0 % [facility] Platelet Count 314 140 - 440 K/uL [facility] MPV 9.4 6.8 - 10.4 fL [facility] Blood 11/06/2024 9:39 AM CDT 11/06/2024 10:54 AM CDT Leigha Sheldon MD LAB BLOOD ORDERABLES F inal Result Performing Organization Address City/[facility] Co de Phone Number [facility] * CRP (acute phase) (11/06/2024 9:39 AM CDT) C-Reactive Protein, Acute <3.0 <5.0 mg/L [facility] Blood 11/06/2024 9:39 AM CDT 11/06/2024 10:54 AM CDT Leigha Sheldon MD LAB BLOOD ORDERABLES F inal Result Performing Organization Address [facility] Co de Phone Number [facility] * Comprehensive metabolic panel (11/06/2024 9:39 AM CDT) Total Protein 7.3 6.1 - 8.4 g/dL [facility] Albumin 3.8 3.5 - 5.2 g/dL [facility] Calcium 9.0 8.6 - 10.3 mg/dL [facility] BUN 9 7 - 23 mg/dL [facility] Total Bilirubin 0.63 0.20 - 1.40 mg/dL [facility] Alk Phos, Total 69 35 - 129 IU/L [facility] AST (SGOT) 22 11 - 47 IU/L [facility] ALT (SGPT) 30 6 - 53 IU/L [facility] Creatinine 0.73 0.60 - 1.10 mg/dL [facility] Sodium 138 135 - 145 mmol/L [facility] Potassium 3.4 3.3 - 5.1 mmol/L [facility] Chloride 101 95 - 107 mmol/L [facility] CO2 Content 23 21 - 29 mmol/L [facility] Glucose 96 64 - 99 mg/dL [facility] Comment: NONFASTING GLUCOSE RANGE = 64-199 mg/dL FASTING GLUCOSE 64 - 99 = NORMAL FASTING GLUCOSE 100 - 125 = IMPAIRED FASTING GLUCOSE FASTING GLUCOSE >=126 = PROVISIONAL DIAGNOSIS OF DIABETES eGFR >90.0 >60.0 mL/min/1.[address] [facility] Blood 11/06/2024 9:39 AM CDT 11/06/2024 10:54 AM CDT us Leigha Sheldon MD LAB BLOOD ORDERABLES F inal Result [facility] * TB test, quantiferon gold (09/18/2024 2:00 PM CDT) Pathologist [facility] QuantiFERON Incubation Incubation performed. [facility] - 01 QuantiFERON Criteria Comment [facility] - 01 Comment: QuantiFERON-TB Gold Plus is a qualitative indirect test for M tuberculosis infection (including disease) and is intended for use in conjunction with risk assessment, radiography, and other medical and diagnostic evaluations. The QuantiFERON-TB Gold Plus result is determined by subtracting the Nil value from either TB antigen (Ag) value. The Mitogen tube serves as a control for the test. QuantiFERON TB1 Ag Value 0.02 IU/mL [facility] - 01 QuantiFERON TB2 Ag Value 0.01 IU/mL [facility] - 01 QuantiFERON Nil Value 0.01 IU/mL [facility] - 01 QuantiFERON Mitogen Value >10.00 IU/mL [facility] - 01 QuantiFERON-TB Gold Plus Negative Negative [facility] - 01 Comment: No response to M tuberculosis antigens detected. Infection with M tuberculosis is unlikely, but high risk individuals should be considered for additional testing (ATS/IDSA/CDC Clinical Practice Guidelines, 2017). The reference range is an Antigen minus Nil result of <0.35 IU/mL. Chemiluminescence immunoassay methodology Blood 09/18/2024 2:00 PM CDT 09/18/2024 Narrative [facility] - 09/22/2024 4:11 PM CDT Performed at: - [address] [id number] Account Executive: Steve Vincent PhD, Phone: [phone] Leigha Sheldon MD LAB BLOOD ORDERABLES F inal Result Performing Organization Address City/[facility]/ZIP Co de Phone Number [facility] - 01 * T-SPOT.TB Blood (09/11/2024 12:51 PM CDT) [facility] T-SPOT.TB BORDERLINE [facility] Comment: Normal Value: Negative The patient's test result cannot be definitively classified as positive or negative. Retesting of the patient is recommended although there is no set guideline established for the time interval between an initial borderline result and a retest. The T-SPOT.TB is a diagnostic aid. If the test result remains borderline upon retesting, other diagnostics and/or epidemiologic information should be used to help determine the Mycobacterium tuberculosis infection status of the patient. The T-SPOT.TB test is qualitative and results are reported as positive, borderline or negative, given that the test controls perform as expected. In line with the Centers for Disease Control and Prevention's 2010 recommendation to report quantitative measurements alongside the qualitative result, the laboratory provides spot counts for informational purposes only. The T-SPOT.TB test should not be interpreted as a quantitative test. T-SPOT.TB Panel A Spot Count 3 [facility] T-SPOT.TB Panel B Spot Count 7 [facility] T-SPOT.TB Negative Control Passed [facility] T-SPOT.TB Positive Control Passed [facility] Comment: Test Performed at: [facility], [facility] [place] [address] POLI WORKMAN,PHD Blood 09/11/2024 12:5 1 PM CDT 09/11/2024 3:42 PM CDT Leigha Sheldon MD LAB MICROBIOLOGY - GEN ERAL ORDERABLES Final Result Performing Organization Address City/[facility]/ZIP Co de Phone Number [facility] Department [place] [address] * (ABNORMAL) Screening Mammogram Bilateral W Segundo (06/23/2024 12:42 PM POULTRYMAN) Anatomical Region Laterality Modality Breast Bilateral Mammography 06/23/2024 1:09 PM POULTRYMAN Impressions 06/23/2024 1:09 PM POULTRYMAN New grouped amorphous calcifications in the 6:00 left breast. Additional imaging recommended. FINAL ASSESSMENT: BI-RADS Category 0: Incomplete - Need Additional Imaging Evaluation. RECOMMENDATION: Findings in the left breast require additional evaluation. A diagnostic mammogram of the left breast is recommended at this time. Electronically signed by: SELINA SINGH MD Narrative 06/23/2024 1:09 PM POULTRYMAN EXAMINATION: BILATERAL SCREENING MAMMOGRAM COMPARISON: All prior mammograms dating back to 2018. TECHNIQUE: Full-field 2D and digital breast tomosynthesis (DBT) images were obtained. CAD was utilized. BREAST PARENCHYMAL COMPOSITION: The breasts are heterogenously dense, which may obscure small masses. FINDINGS: There are new grouped amorphous calcifications in the 6:00 left breast. No new suspicious abnormality in the right breast. us Self Screening Mammogram IMG MAMMO PROCEDURES Fi nal Result * Colonoscopy (03/06/2024 7:59 AM CDT) Anatomical Region Laterality Modality Other Narrative Procedure Note Leigha Sheldon MD - 03/06/2024 7:59 AM CDT ENDOSCOPY LAB Patient Name: Alex Slade Procedure Date: 03/06/2024 7:59 AM Date of : 1975 Admit Type: Outpatient Age: 48 Gender: Female Attending MD: Leigha Sheldon M.D. Room: [facility] ENDOSCOPY ROOM 05 Note Status: Finalized Procedure: Colonoscopy Indications: High risk colon cancer surveillance: Crohn'scolitis of 8 (or more) years duration with one-third (ormore) of the colon involved. Inflectra every 8 weeks,6-MP 25 mg daily, allopurniol 100 mg daily Providers: Leigha Sheldon M.D. Referring MD: Leigha Sheldon M.D. Medicines: Monitored Anesthesia Care Complications: No immediate complications. Estimated Blood Loss: Estimated blood loss: none. Procedure: Pre-Anesthesia Assessment: - Immediately prior to administration ofmedications, the patient was re-assessed for adequacy to receive sedatives. The benefits, risks and alternatives of theprocedure and sedation were discussed and informed consentwas obtained. All questions were answered. Please referto the signed informed consent document in the medical record. The scope was passed under direct vision.The [id number] was introduced through the anusand advanced to the terminal ileum. The colonoscopy was performed without difficulty. The patient tolerated the procedure well. The quality of the bowel preparation was adequate. Findings: The perianal and digital rectal examinations were normal. Patent ileocolonic anastomosis The charlie-terminal ileum appeared normal up to 10 cm. The colon (entire examined portion) appeared normal. Impression: - Mucosal remission - Patent ileocolonic anastomosis Recommendation: - Continue current therapy - Repeat colonoscopy in 2 years for surveillance. Electronically Signed by Leigha Sheldon M.D. Leigha Sheldon M.D. 03/06/2024 8:13:28 AM Number of Addenda: 0 Note Initiated On: 03/06/2024 7:59 AM Leigha Sheldon MD ENDOSCOPY PROCEDURES F inal Result from Last 3 Months or Most Recently Relevant to Health Maintenance Insurance [facility] H[facility]/PPO Address: [place] [address] GENERIC COPAY ASSIST [facility] HMO/PPO Address: [address] [place] [address] [place] [facility] CHOICE PLUS [facility] HMO/PPO Address: [address] [place] [address] Advance Directives For more information, please contact: [phone] * Full Code (Latest Code Status on File) Date Activated Date Inactivated Comments 03/06/2024 7:11 AM 03/06/2024 2:36 PM * Full Code Date Activated Date Inactivated Comments 03/02/2022 6:35 AM 03/02/2022 12:48 PM * Full Code Date Activated Date Inactivated Comments 03/17/2021 6:24 AM 03/17/2021 12:26 PM * Full Code Date Activated Date Inactivated Comments 12/09/2020 8:35 AM 12/09/2020 2:24 PM * Full Code Date Activated Date Inactivated Comments 11/14/2018 6:34 AM 11/14/2018 12:31 PM Care Teams Curriculum Specialist Relationship Specialty Start Date End Date Pravin Lewis DO PCP - General 07/06/16
--- OUTSIDE RECORDS SUMMARY | 2024-12-11 07:42 | XMS_ITS | Clinical Summary ---
Author Organization [facility] Address [address] [place] [address] Care Team Providers Care Lunch Counter Manager Name Role Phone Pravin Lewis DO Primary Care Provider [phone] Allergies Active Allergy Reactions Criticality Noted Date [...] mg capsule Take 1 tablet by mouth outreach coordinator before breakfast Active traMADoL (ULTRAM) 50 mg tablet Take 1 tablet (50 mg total) by mouth 021 Active tazarotene (AVAGE) 0.1 % cream Apply 1 application topically nightly 021 Active celecoxib (CeleBREX) 200 mg capsule Take 1 capsule (200 mg total) by mouth 2 (two) times a day as needed for pain 022 Active Winlevi 1 % cream as needed 023 Active cyanocobalamin (Vitamin B-12) 100 mcg tablet Take 1 tablet (100 mcg total) by mouth outreach coordinator before breakfast Active aspirin 81 mg enteric coated tablet Take 1 tablet (81 mg total) by mouth outreach coordinator before breakfast Active polyethylene glycol (MIRALAX) 17 [...] hours as needed for headaches 10 tablet 024 Active hyoscyamine (LEVSIN) 0.125 mg tabletIndications:C rohn's [...] (08/03/2022): Added automatically from request for surgery [id number] High risk medications (not anticoagulants) long- term [...] goiter 10/03/2013 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 5th [place] [address] [place] [address] Crohn's disease of ileum with complication (HCC) [K50.019] (Primary Dx) 5 9:30 AM CDT Infusion [facility] Infusion Therapy [facility] 5th [place] [address] [place] [address] Crohn's disease of ileum with complication (HCC) (Primary Dx) 5 Telephone [facility] Breast [facility] [address] [place] [address] Jess Andujar RN 5 Orders Only [facility] Gastroenterology [address] [facility] 12th [place] [address] [place] [address] Myesha Flores RN Crohn's disease with complication, unspecified gastrointestinal tract location (HCC) (Primary Dx); High risk medications (not anticoagulants) long-term use; Routine health maintenance 5 Telephone [facility] Breast Imaging [facility] [address] [place] [address] Bambi Acevedo RN 5 Documentation [facility] Gastroenterology [address] [facility] 12th [place] [address] [place] [phone] Daylin Shah MD 5 1:00 PM CDT Infusion [facility] Infusion Therapy [address] [facility] 5th [place] [address] [place] [phone] Crohn's disease of ileum with complication (HCC) (Primary Dx) 5 12:51 PM CDT - 5 11:59 PM CDT Hospital Encounter [address] [address] Discharge Disposition: Discharge to home or self care from Last 3 Months Immunizations Immunization Administration Dates Next Due Hep [...] Pneumococcal Polysaccharide PPV23 07/10/2023,,07/31/2012 ZOSTER Recombinant 10/26/2022,07/09/2022 Surgical History Surgery Date Site/Laterality Comments SMALL BOWEL RESECTION 05/20/2014 - 05/19/2015 DILATION AND CURETTAGE OF UTERUS 05/20/2000 - 05/19/2001 COLONOSCOPY CHOLECYSTECTOMY Medical History Medical History Date Comments Crohn's disease (HCC) Former smoker quit 1998 Motion sickness Cholelithiasis Thyroid nodule Chronic constipation Chronic diarrhea Family History Medical History Relation Name Comments Hypertension Brother Family history of hypertension - (Added by TW Conv) Anxiety disorder Child Anxiety - ( Added by TW Conv) Colon polyps Maternal Grandmother Hypertension Mother Family history of hypertension - (Added by TW Conv) PONV Mother Thyroid cancer Mother Diabetes type II Other 1 Family hist ory of Diabetes -Type II; Hypertension Other 2 Family history of Hypertension; Heart disease Sister 1 Hypertension Sister 1 Family history of hypertension - (Added by TW Conv) PONV Sister 1 Hyperlipidemia Sister 2 Family histor y of hypercholesterolemia - (Added by TW Conv) Diabetes Sister 3 Family history of diabetes mellitus - (Added by TW Conv) Glaucoma Sister 4 Family history of glaucoma - (Added by TW Conv) Breast cancer Neg Hx Ovarian cancer Neg Hx Pancreatic cancer Neg Hx Prostate cancer Neg Hx Relation Name Status Comments Brother Child Maternal Grandmother Mother Other 1 Other 2 Sister 1 Sister 2 Sister 3 Sister 4 Social History Tobacco Use Types Packs/Day Years [...] on file 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 Gender Identity Female 11/02/2021 7:32 AM CDT Sexual Orientation Straight 11/02/2021 7: 32 AM CDT Obstetrics History Para Term AB IAB SAB Ectopic Multiple Livin g Live Births 3 1 1 Date Outcome GA Total Labor Labor/2nd/3rd Weight Sex Type Anes PTL Bruna A1 A5 Name Clin Term Last Filed Vital Signs Vital Sign Reading [...] 08/03/2024 9:45 AM CDT Plan of Treatment Health Maintenance Due Date Last Done Comments Albumin Creatinine Ratio, Urine 1974 Cervical Cancer Screening 1974 Depression Screening 1974 Hemoglobin A1C 1974 Hepatitis C Screening 1974 Dilated Eye Exam 1974 Foot Exam 1974 Lipid Panel 1974 DTaP/Tdap/Td Vaccine (1 - Tdap) 1985 Regular Well Visit/Exam 18-64 1992 Covid-19 Vaccine (5 - 2023-2 5 season) 2024 01/12/2022, 06/28/2021, 12/27/2020, Additional history exists Influenza Vaccine (#1) 2025 , 02/16/2021, 01/24/2020, Additional history exists Breast Cancer Screening-Mammogram 06/23/2025 06/23/2024, 06/21/2023, 06/20/2022, Additional history exists eGFR 11/06/2025 11/06/2024, /05/2024, 05/15/2024, Additional history exists Pneumococcal vaccine <65 (4 of 4 - PCV20 or PCV21) 07/10/2028 07/10/2023, 08/01/2017, 01/31/2017, Additional history exists Colon Cancer Screening-Colonoscopy 03/06/2034 03/06/2024, 03/02/2022, 03/17/2021, Additional history exists Zoster Vaccine Completed 10/26/2022, 07/09/2022 Hepatitis B Screening Completed 05/15/2024 , 04/03/2012, 04/03/2012, Additional history exists Medical Devices Implanted Type Area Technical Support Representative Device Identifier Shelf Expiration Date Model / Serial / Lot Clip Med-Lg Plymr Internal Clips 6 Cartrdg Symmetry Alejandra - [id number] Implanted:Qty: 1 on 09/20/2022 by Wing Lee MD PhD at [facility] Clip N/A: Abdomen [employer] 01/19/2024 [id number] / / [id number] Procedures Procedure Name Priority Date/Time Associated Diagnosis [...] Read Routine (OP Routine) 06/23/2024 12:42 PM PLANT MAINTENANCE WORKER Screening mammogram, encounter for COLONOSCOPY 03/06/2024 7:59 [...] ORDERABLES F inal Result Performing Organization Address [facility] Co de Phone Number [facility] * CRP (acute phase) (11/06/2024 9:39 AM CDT) Pathologist [facility] C-Reactive Protein, Acute <3.0 <5.0 mg/L [facility] Blood 11/06/2024 9:39 AM CDT 11/06/2024 10:54 AM CDT Leigha Sheldon MD LAB BLOOD ORDERABLES F inal Result [facility] * Comprehensive metabolic panel (11/06/2024 9:39 AM CDT) [facility] Total Protein 7.3 6.1 - 8.4 g/dL [...] [facility] Glucose 96 64 - 99 mg/dL [facility] Comment: NONFASTING GLUCOSE RANGE = 64-199 mg/dL FASTING GLUCOSE 64 - 99 = NORMAL FASTING GLUCOSE 100 - 125 = IMPAIRED FASTING GLUCOSE FASTING GLUCOSE >=126 = PROVISIONAL DIAGNOSIS OF DIABETES eGFR >90.0 >60.0 mL/min/1.7 3 m2 [facility] Blood 11/06/2024 9:39 AM CDT 11/06/2024 10:54 AM CDT Leigha Sheldon MD LAB BLOOD ORDERABLES F inal Result [facility] * TB test, quantiferon gold (09/18/2024 2:00 PM CDT) [facility] QuantiFERON Incubation Incubation performed. [facility] - 01 [...] - 09/22/2024 4:11 PM CDT Performed at: [address] [place] [id number] Traffic Routing Engineer: Steve Vincent PhD, Phone: [phone] Leigha Sheldon MD LAB BLOOD ORDERABLES F inal Result [facility] - 01 * T-SPOT.TB Blood (09/11/2024 12:51 PM CDT) [facility] T-SPOT.TB BORDERLINE SeeBelow Comment: Normal Value: Negative The patient's test [...] test. T-SPOT.TB Panel A Spot Count 3 [facility] T-SPOT.TB Panel B Spot Count 7 [facility] T-SPOT.TB Negative Control Passed [facility] T-SPOT.TB Positive Control Passed [facility] Comment: Test Performed at: [employer] [address] [place] [address] POLI WORKMAN,PHD Blood 09/11/2024 12:5 1 PM CDT 09/11/2024 3:42 PM CDT Leigha Sheldon MD LAB MICROBIOLOGY - GEN ERAL ORDERABLES Final Result [facility] Department [place] [address] * (ABNORMAL) Screening Mammogram Bilateral W [place] (06/23/2024 12:42 PM PLANT MAINTENANCE WORKER) Anatomical Region Laterality Modality Breast Bilateral Mammography 06/23/2024 1:09 PM PLANT MAINTENANCE WORKER Impressions 06/23/2024 1:09 PM PLANT MAINTENANCE WORKER New grouped amorphous calcifications in the 6:00 left breast. Additional imaging recommended. FINAL ASSESSMENT: BI-RADS Category 0: Incomplete - Need Additional Imaging Evaluation. RECOMMENDATION: Findings in the left breast require additional evaluation. A diagnostic mammogram of the left breast is recommended at this time. Electronically signed by: SELINA SINGH MD Narrative 06/23/2024 1:09 PM PLANT MAINTENANCE WORKER EXAMINATION: BILATERAL SCREENING MAMMOGRAM COMPARISON: All prior mammograms dating back to 2018. TECHNIQUE: Full-field 2D and digital breast tomosynthesis (DBT) images were obtained. CAD was utilized. BREAST PARENCHYMAL COMPOSITION: The breasts are heterogenously dense, which may obscure small masses. FINDINGS: There are new grouped amorphous calcifications in the 6:00 left breast. No new suspicious abnormality in the right breast. Self Screening Mammogram IMG MAMMO PROCEDURES Fi nal Result * Colonoscopy (03/06/2024 7:59 AM CDT) Anatomical Region Laterality Modality Other Narrative Procedure Note Leigha Sheldon MD - 03/06/2024 7:59 AM CDT ENDOSCOPY LAB Patient Name: Alex Slade Procedure Date: 03/06/2024 7:59 AM Date of : 1975 Admit Type: Outpatient Age: 48 Gender: Female Attending MD: Leigha Sheldon M.D. Room: [facility] ENDOSCOPY ROOM 05 Note Status: Finalized [...] The scope was passed under direct vision.The [id number] was introduced through the anusand advanced to [...] Most Recently Relevant to Health Maintenance Insurance [facility] CHO[facility] PLUS [facility] H[facility]/PPO Address: [facility] [address] [place] [address] [employer]IC [employer] [facility]/PPO Address: [place] [address] CHOICE PLUS [facility] H[facility]/PPO Address: [address] [place] [address] Advance Directives For more information, please contact: [phone] * Full Code (Latest Code Status on [...] 6:34 AM 11/14/2018 12:31 PM Care Teams Lunch Counter Manager Relationship Specialty Start Date End Date Pravin Lewis DO PCP - General 07/06/16
[2024-12-11 08:20] LABS: Cholesterol 158 mg/dL (0-200); HDL Direct 48 mg/dL; Triglycerides 179 mg/dL (<150)
== END 2024-12-11 07:39 | disposition home or self-care (01) ==
LOC: ANHLAB 07:40
PROVIDERS: PCP Nurse Practitioner; Visit Provider Nurse Practitioner
DX: E55.9 Vitamin D deficiency, unspecified (principal); Z13.220 Encounter for screening for lipoid disorders
CPT/HCPCS: 36415; 80061; 82306

== ENCOUNTER 2025-03-04 14:25 | Outpatient (CLI) | payer OTHER, SELFPAY ==
--- OUTSIDE RECORDS SUMMARY | 2025-03-04 16:31 | XMS_ITS | Clinical Summary ---
Author Organization [facility] Address [address] [place] [address] Care Team Providers Care Shirt Folding Machine Operator Name Role Phone Unavailable Primary Care Provider [...] Screening with HPV 2004 Mammogram Screening 2014 Pneumococcal Vaccine: 50+ Ye ars (1 of 1 - PCV) 2024 Zoster Vaccines (1 of 2) 2024 COVID-19 Vaccine ( - 2023-2 5 season) 2025 Influenza Adult (#1) 2025 Meningococcal B Vaccine Aged Out No l onger eligible based on patient's age to complete this topic Meningococcal Vaccine Aged Out No noel hubert eligible based on patient's age to complete this topic RSV Immunizations Under 20 Months Aged Out No longer eligible based on patient's age to complete this topic
--- OUTSIDE RECORDS SUMMARY | 2025-03-04 16:31 | XMS_ITS | Clinical Summary ---
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 Gender Identity Not on file Sexual Orientation Not on file Plan of Treatment Health Maintenance Due Date Last Done Comments Hepatitis C Virus (HCV) Screening 1974 TdaP Immunization 1974 Hepatitis B Immunization (1 of 3 - 19+ 3-dose series) 1993 Pap Smear 1995 Cervical Cancer Screening (CCS) 2004 HPV/Cotest 2004 Cologuard 2019 Colonoscopy 2019 Colorectal Cancer Screening 2019 Immunochemical Fecal Occult Blood 2019 Pneumococcal Immunization (50+ years) (1 of 1 - PCV) 2024 Zoster Immunization (1 of 2) 2024 Influenza Immunization (#1) 2025 09/0 10/2019, 01/11/2019, 02/10/2018, Additional history exists SARS-COV-2 Immunization ( season) 2025 06/28/2021, 12/27/2020, 12/06/2020 Respiratory Syncytial Virus (RSV) Immunization (Adult) (1 [...]
--- OUTSIDE RECORDS SUMMARY | 2025-03-04 16:32 | XMS_ITS | Clinical Summary ---
Author Organization [facility] Address [address] [place] [address] Care Team Providers Care Water Pump Servicer Name Role Phone Pravin Lewis DO Primary Care Provider Allergies Active Allergy Reactions Criticality Noted Date [...] mg capsule Take 1 tablet by mouth early childhood before breakfast Active traMADoL (ULTRAM) 50 mg tablet Take 1 tablet (50 mg total) by mouth 021 Active tazarotene (AVAGE) 0.1 % cream Apply 1 application topically nightly 021 Active Winlevi 1 % cream as needed 023 Active cyanocobalamin (Vitamin B-12) 100 mcg tablet Take 1 tablet (100 mcg total) by mouth early childhood before breakfast Active aspirin 81 mg enteric coated tablet Take 1 tablet (81 mg total) by mouth early childhood before breakfast Active polyethylene glycol (MIRALAX) 17 [...] DRINK INSTRUCTED FOR BOWEL PREP 4000 mL 024 Active Additional Information Patient not taking.Reported on [...] times a day 10 tablet 025 Active Apriso 0.375 gram 24 hr capsuleIndications: Crohn's disease with complication, unspecified gastrointestinal tract location (HCC),High risk medications (not anticoagulants) long-term use Take 1 capsule by mouth twice daily 180 capsule 1 025 Active allopurinoL (ZYLOPRIM) 100 mg tabletIndications:C rohn's disease with complication, unspecified gastrointestinal tract location (HCC) Take 1 tablet by mouth once daily 90 tablet 025 Active mercaptopurine (PURINETHOL) 50 mg tabletIndications:C rohn's disease of ileum with complication (HCC) Take 1/2 (one-half) tablet by mouth once daily 45 tablet 025 Active omeprazole (PriLOSEC) 20 mg capsuleIndications: Crohn's disease of ileum with complication (HCC),Gastroesophag eal reflux disease, unspecified whether esophagitis present TAKE 1 CAPSULE BY MOUTH TWICE DAILY WITH MEALS 180 capsule 025 Active celecoxib (CeleBREX) 200 mg capsule Take 1 capsule (200 mg total) by mouth 2 (two) times a day as needed for pain 022 2024 Discontinued omeprazole (PriLOSEC) 20 mg capsuleIndications: Crohn's disease of ileum with complication (HCC),Gastroesophag eal reflux disease, unspecified whether esophagitis present TAKE 1 CAPSULE BY MOUTH TWICE DAILY WITH MEALS 180 capsule 025 2024 Discontinued Active Problems Problem Noted Date Diagnosed Date Colon cancer screening 01/08/2024 Cholecystitis 08/03/2022 Overview (08/03/2022): Added automatically from request for surgery [id number] High risk medications (not anticoagulants) long- term [...] Encounters Date Type Department Care Team Description 02/26/2025 9:30 AM CDT Infusion [facility] [address] [place] [address] Medicine 7th [place] [address] Crohn's disease of ileum with complication (HCC) (Primary Dx) 02/16/2025 10:00 AM CDT Lab [facility] ([facility]) [address] [place] [phone] Polyarthralgia; Chronic back pain, unspecified back location, unspecified back pain laterality; High risk medications (not anticoagulants) long-term use; Rheumatoid factor positive; Inflammatory arthritis 02/16/2025 8:58 AM CDT - 02/16/2025 11:59 PM CDT Hospital Encounter [facility] ([facility]) [address] [place] [address] Polyarthralgia; Chronic back pain, unspecified back location, unspecified back pain laterality Discharge Disposition: Discharge to home or self care 02/16/2025 8:00 AM CDT Office Visit [facility] [address] [place] [address] Advanced Medicine 5th [place] [address] [place] [address] Dinora Reyes NP Rheumatoid factor positive (Primary Dx); Inflammatory arthritis; High risk medications (not anticoagulants) long-term use; Polyarthralgia; Chronic back pain, unspecified back location, unspecified back pain laterality 01/08/2025 Results Follow-Up [facility] ([facility]) [address] [place] [address] Chelly Ogden RN Surgical pathology 01/05/2025 12:35 PM CDT - 01/05/2025 11:59 PM CDT Hospital Encounter [facility] ([facility]) [address] [place] [address] Abnormal mammogram Discharge Disposition: Discharge to home or self care 01/05/2025 10:48 AM CDT - 01/05/2025 11:59 PM CDT Hospital Encounter [facility] ([facility]) [address] [place] [address] Abnormal mammogram Discharge Disposition: Discharge to home or self care 01/01/2025 9:30 AM CDT Infusion [facility] Special[facility]fusion [facility] [address] [place] [address] Advanced [facility] 7th [place] [address] Crohn's disease of ileum with complication (HCC) (Primary Dx) 12/21/2024 10:30 AM CDT - 12/21/2024 11:59 PM CDT Hospital Encounter [facility] ([facility]) [address] [place] [address] Abnormal mammogram Discharge Disposition: Discharge to home or self [...] OF UTERUS 05/20/2000 - 05/19/2001 COLONOSCOPY CHOLECYSTECTOMY BREAST BIOPSY 01/05/2025 Left Medical History Medical History Date Comments Crohn's [...] Not Answered Alcohol Use Standard Drinks/Week Comments Not Currently 0 (1 standard drink = 0.6 oz pur e alcohol) very rarely AUDIT-C Answer Date Recorded Q1: How often do you have a drink containing alcohol? Never 02/16/2025 Q2: How many drinks containi ng alcohol do you have on a typical day when you are drinking? Patient does not drink Q3: How often do you have si x or more drinks on one occasion? Never 02/16/2025 Hunger Vital Sign Answer Date Recorded Within the past 12 months, y ou worried that your food would run out before you got the money to buy more. Never true 02/27/20 25 Within the past 12 months, t he food you bought just didn't last and you didn't have money to get more. Never true 02/26/2025 Personal Safety Answer Date Recorded Have you ever been in or are you currently in a harmful physical or emotional relationship or is someone making you feel afraid or unsafe? 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 Gender Identity Female 11/02/2021 7:32 AM CDT Sexual Orientation Straight 11/02/2021 7: 32 AM CDT Obstetrics History Para Term AB IAB SAB Ectopic Multiple Livin g Live Births 3 1 1 1 Date Outcome GA Total Labor Labor/2nd/3rd Weight Sex Type Anes PTL Bruna A1 A5 Name Clin Term Last Filed Vital Signs Vital Sign Reading Time Taken Comments Blood Pressure 131/88 02/26/2025 11:45 AM CDT Pulse 77 02/26/2025 11:45 AM CDT Temperature 36.5 C (97.7 F) 02/26/2025 9:10 AM CDT Respiratory Rate 18 02/16/2025 7:47 AM CDT Oxygen Saturation 95% 02/26/2025 11:45 AM CDT Inhaled Oxygen Concentration - - Weight 87.6 kg (193 lb 1.6 oz) 02/26/2025 9:10 A M CDT Height 162.6 cm (5' 4) 02/26/2025 9:10 AM CDT Body Mass Index 33.15 02/26/2025 9:10 AM CDT Plan of Treatment Health Maintenance Due Date Last Done Comments Albumin Creatinine Ratio, Urine 1974 Cervical Cancer Screening 1974 Depression Screening 1974 Hemoglobin A1C 1974 Hepatitis C Screening 1974 Dilated Eye Exam 1974 Foot Exam 1974 Lipid Panel 1974 DTaP/Tdap/Td Vaccine (1 - Tdap) 1985 Regular Well Visit/Exam 18-64 1992 Covid-19 Vaccine (2024-2 6 season) 2025 01/12/2022, 06/28/2021, 12/27/2020, Additional history exists Influenza Vaccine (#1) 2025 , 02/16/2021, 01/24/2020, Additional history exists Breast Cancer Screening-Mammogram 06/23/2025 06/23/2024, 06/21/2023, 06/20/2022, Additional history exists eGFR 02/16/2026 02/16/2025, 10/19, 07/10/2024, Additional history exists Pneumococcal vaccine <65 (4 of 4 - PCV20 or PCV21) 07/10/2028 07/10/2023, 08/01/2017, 01/31/2017, Additional history exists Colon Cancer Screening-Colonoscopy 03/06/2034 03/06/2024, 03/02/2022, 03/17/2021, Additional history exists Zoster Vaccine Completed 10/26/2022, 07/09/2022 Hepatitis B Screening Completed 05/15/2024 , 04/03/2012, 04/03/2012, Additional history exists Medical Devices Implanted Type Area Scrap Hoist Operator Device Identifier Shelf Expiration Date Model / Serial / Lot Clip Med-Lg Plymr Internal Clips 6 [facility]g [facility] [id number] Implanted:Qty: 1 on 09/20/2022 by Wing Lee MD PhD at [facility] Clip N/A: Abdomen [employer] 01/19/2024 [id number] / / [id number] swabr Partnership Marker Biospy Site Mini Cork Shape Deployment Device Titanium [employer] Eviva 13cm [id number] - [id number] Implanted:Qty: 1 on 01/05/2025 by Tina Horvath MD at [facility] Left: Breast swabr Partnership [id number] 07[facility]07/2025 [facility] / / [id number] Procedures Procedure Name Priority Date/Time Associated Diagnosis Comments HLA-B*27 TYPING FOR ANKYLOSING SPONDYLITIS Routine 02/16/2025 9:42 AM CDT Polyarthralgia Chronic back pain, unspecified back location, unspecified back pain laterality HLA CLASS I DNA (ABC) RECIPIENT Routine 02/16/2025 9:42 AM CDT Polyarthralgia EGFR Routine 02/16/2025 9:41 AM CDT Polyarthralgia DIFFERENTIAL AUTO Routine 02/16/2025 9:4 1 AM CDT Polyarthralgia CBC WITH AUTO DIFFERENTIAL Routine 02/16/2025 9:41 AM CDT Polyarthralgia COMPREHENSIVE METABOLIC PANEL Routine 02/16/2025 9:41 AM CDT Polyarthralgia ERYTHROCYTE SEDIMENTATION RATE Routine 02/16/2025 9:41 AM CDT Polyarthralgia CRP (ACUTE PHASE) Routine 02/16/2025 9:4 1 AM CDT Polyarthralgia RHEUMATOID FACTOR Routine 02/16/2025 9:4 1 AM CDT Polyarthralgia CYCLIC CITRUL PEPTIDE ANTIBODY, IGG Routine 02/16/2025 9:41 AM CDT Rheumatoid factor positive Inflammatory arthritis SJOGRENS SYNDROME-A ANTIBODY Routine 02/16/2025 9:41 AM CDT Polyarthralgia SJOGRENS SYNDROME-B ANTIBODY Routine 02/16/2025 9:41 AM CDT Polyarthralgia T-SPOT.TB Routine 02/16/2025 9:41 AM CDT High risk medications (not anticoagulants) long-term use XR WRIST RIGHT 3 OR MORE VIEWS Schedule Routine, Read Routine (OP Routine) 02/16/2025 9:25 AM CDT Polyarthralgia XR SACROILIAC JOINTS 3 OR MORE VIEWS Schedule Routine, Read Routine (OP Routine) 02/16/2025 9:25 AM CDT Polyarthralgia Chronic back pain, unspecified back location, unspecified back pain laterality XR FOOT BILATERAL 3 OR MORE VIEWS OF EACH Schedule Routine, Read Routine (OP Routine) 02/16/2025 9:25 AM CDT Polyarthralgia XR HAND BILATERAL 3 OR MORE VIEWS OF EACH Schedule Routine, Read Routine (OP Routine) 02/16/2025 9:25 AM CDT Polyarthralgia XR SPINE LUMBAR 2 OR 3 VIEWS Schedule Routine, Read Routine (OP Routine) 02/16/2025 9:25 AM CDT Polyarthralgia SEGUNDO POST CLIP PLACEMENT LEFT Schedule Routine, Read Routine (OP Routine) 01/05/2025 12:59 PM CDT Abnormal mammogram STEREOTACTIC BREAST BIOPSY LEFT Schedule Routine, Read Routine (OP Routine) 01/05/2025 12:59 PM CDT Abnormal mammogram SURGICAL PATHOLOGY Routine 01/05/2025 11 :00 AM CDT Abnormal mammogram DIAGNOSTIC MAMMOGRAM LEFT W SEGUNDO Schedule Routine, Read Routine (OP Routine) 12/21/2024 11:07 AM CDT Abnormal mammogram SCREENING MAMMOGRAM BILATERAL W SEGUNDO Schedule Routine, Read Routine (OP Routine) 06/23/2024 12:42 PM 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 HISTOTRAC Blood 02/16/2025 9:42 AM CDT 02/17/2025 2:28 PM CDT Narrative HISTOTRAC - 02/17/2025 2:28 PM CDT HLA-B typing is performed using the reverse sequence specific oligonucleotide (r-SSO) method, which is based on an FDA approved IVD kit and validated by the [facility] HLA laboratory. Interpretive comments: HLA-B*27 positivity confers increased risk for ankylosing spondylitis or nonradiographic axial spondyloarthritis. The absence of HLA-B*27 may help rule out these diagnoses Expected: HLA-B*27 has been found in 74% to 89% of patients with either nonradiographic axial spondyloarthritis or ankylosing spondylitis. The absolute risk of spondyloarthritis in persons with HLA-B*27 is 2% to 10%. (N Engl J Med 2016;374:2563-74) Testing performed at the [facility], [facility], [address]th floor, [place], [address]. [facility] # [id number]. Erika Garcia, Ph.D., Sketcher, HLA Laboratory Conor Dowell M.D., Ph.D., Apparel Fashion Designer, HLA Laboratory Milly Kruger, Ph.D., [place] Apparel Fashion Designer, [facility] Current methodology and interpretive comments were last revised on 12/10/2016 [facility] [place] NP LAB BLOOD ORDERABLES Final Result Performing Organization Address [facility] [place] [facility] Co de Phone Number HISTOTRAC * Collection Task for HLA Typing 1 (02/16/2025 9:42 AM CDT) Pathologist [facility] HLA Class I DNA (ABC) Recipient Received Blood 02/16/2025 9:42 AM CDT 02/16/2025 10:03 AM CDT Dinora Reyes NP LAB BLOOD ORDERABLES Final Result Performing Organization Address [facility] [place] [facility] Co de Phone Number [facility] Department [place] [address] * T-SPOT.TB Blood (02/16/2025 9:41 AM CDT) Pathologist [facility] T-SPOT.TB Negative SeeBelow Comment: Normal Value: Negative A negative test result does not exclude the possibility of exposure to or infection with Mycobacterium tuberculosis (M. tuberculosis). Patients with recent exposure to TB infected individuals exhibiting a negative T-SPOT.TB result should be considered for retesting within 6 weeks or if other relevant clinical symptoms indicate. Results from T-SPOT.TB testing must be used in conjunction with each individual's epidemiological history, current medical status, and results of other diagnostic evaluations. The T-SPOT.TB test is qualitative and results [...] quantitative test. T-SPOT.TB Panel A Spot Count 0 [facility] T-SPOT.TB Panel B Spot Count 2 [facility] T-SPOT.TB Negative Control Passed [facility] T-SPOT.TB Positive Control Passed [facility] Comment: Test Performed at: [employer] [facility] [place] [address] POLI WORKMAN,PHD Blood 02/16/2025 9:41 AM CDT 02/16/2025 11:38 AM CDT Dinora Reyes NP LAB MICROBIOLOGY - NERAL ORDERABLES Final Result [facility] Department [place] [address] * eGFR (02/16/2025 9:41 AM CDT) eGFR 82 >=60 mL/min/1. 73 m2 Comment: Interpretive Data Reference Interval Normal >/= 90 mL/min/1.73m2 Mildly decreased* 60 - 89 mL/min/1.73m2 Mildly to moderately decreased 45 - 59 mL/min/1.73m2 Moderately to severely decreased 30 - 44 mL/min/1.73m2 Severely decreased 15 - 29 mL/min/1.73m2 Kidney Failure < 15 mL/min/1.73m2 *Relative to young adult level Estimated glomerular filtration rate is determined by the 2020 CKD-EPI equation recommended by the National Kidney Foundation (A Unifying Approach to GFR Estimation: Recommendations of the NKF-ASK Task Force on Reassessing the Inclusion of Race in Diagnosing Kidney Disease, JASN 2020). The CKD-EPI equation should not be used for patients with unstable renal function and has not been validated in children and those over 70. Current interpretive data was last reviewed 2021. Blood 02/16/2025 9:41 AM CDT 02/16/2025 9:56 AM CDT Dinora Reyes NP LAB BLOOD ORDERABLES Final Result [facility] [place] [address] * Differential, auto (02/16/2025 9:41 AM CDT) Neutrophil abs 4.44 1.50 - 6.50 K/cumm Imm gran abs 0.03 0.00 - 0.10 K/cumm [facility] Lymphocyte abs 1.74 0.80 - 3.30 K/cumm [facility] Monocyte abs 0.43 0.20 - 0.80 K/cumm [facility] Eosinophil abs 0.12 0.00 - 0.50 K/cumm [facility] Basophil abs 0.02 0.00 - 0.10 K/cumm [facility] Neutrophil pct 65.5 % [facility] Comment: Interpretive Data Percent cell count reference ranges are not reported, since discordance with absolute values may lead to misinterpretation of CBC data. Current Interpretive Data was last revised on 2017. Imm gran pct 0.4 % [facility] Comment: Interpretive Data Percent cell count reference ranges are not reported, since discordance with absolute values may lead to misinterpretation of CBC data. Current Interpretive Data was last revised on 2017. Lymphocyte pct 25.7 % [facility] Comment: Interpretive Data Percent cell count reference ranges are not reported, since discordance with absolute values may lead to misinterpretation of CBC data. Current Interpretive Data was last revised on 2017. Monocyte pct 6.3 % [facility] Comment: Interpretive Data Percent cell count reference ranges are not reported, since discordance with absolute values may lead to misinterpretation of CBC data. Current Interpretive Data was last revised on 2017. Eosinophil pct 1.8 % [facility] Comment: Interpretive Data Percent cell count reference ranges are not reported, since discordance with absolute values may lead to misinterpretation of CBC data. Current Interpretive Data was last revised on 2017. Basophil pct 0.3 % [facility] Comment: Interpretive Data Percent cell count reference ranges are not reported, since discordance with absolute values may lead to misinterpretation of CBC data. Current Interpretive Data was last revised on 2017. Blood 02/16/2025 9:41 AM CDT 02/16/2025 9:53 AM CDT Dinora Reyes NP LAB BLOOD ORDERABLES Final Result [facility] [place] [address] * (ABNORMAL) CBC with auto differential (02/16/2025 9:41 AM CDT) WBC 6.78 3.80 - 9.90 K/cumm Hgb 13.2 11.9 - 15.5 g/dL [facility] Hct 38.1 35.6 - 45.5 % [facility] Plt 286 150 - 400 K/cumm [facility] MPV 10.8 9.1 - 12.3 fL [facility] RBC 3.73(L) 3.90 - 5.20 M/cumm [facility] MCV 102.1(H) 81.3 - 96.4 fL [facility] MCH 35.4(H) 27.1 - 33.3 pg [facility] MCHC 34.6 32.3 - 35.7 g/dL [facility] RDW CV 14.0 11.1 - 14.9 % [facility] RDW SD 53.3(H) 35.7 - 48.1 fL [facility] NRBC abs 0.00 0.00 - 0.01 K/cumm [facility] Blood 02/16/2025 9:41 AM CDT 02/16/2025 9:53 AM CDT Dinora Reyes WIREWORKER SUPERVISOR LAB BLOOD ORDERABLES Final Result Performing Organization Address [facility] [place] [facility] de Phone Number [facility] [place] [address] * Cyclic citrul peptide antibody, IgG (02/16/2025 9:41 AM CDT) CCP Ab <0.5 <=2.9 units/mL Comment: Interpretive data Negative: <3 units/mL Positive: > or equal to 3 units/mL Current interpretive data was last revised on 2016. Blood 02/16/2025 9:41 AM CDT 02/16/2025 9:53 AM CDT Dinora Reyes WIREWORKER SUPERVISOR LAB BLOOD ORDERABLES Final Result Performing Organization Address [facility] de Phone Number [facility] [place] [address] * Sjogren's syndrome B ab (02/16/2025 9:41 AM CDT) Anti-EVER, SS-B <0.2 <=0.9 Ab Index Comment: Interpretive Data Negative: < 1.0 Ab Index Positive: > or = 1.0 Ab Index Current interpretive data was last revised on 2016. Blood 02/16/2025 9:41 AM CDT 02/16/2025 9:53 AM CDT Dinora Reyes NP LAB BLOOD ORDERABLES Final Result Performing Organization Address [facility] [place] [facility] Co de Phone Number [facility] [place] [address] * Sjogren's syndrome A ab (02/16/2025 9:41 AM CDT) Anti-EVER, SS-A <0.2 <=0.9 Ab Index Comment: Interpretive Data Negative: < 1.0 Ab Index Positive: > or = 1.0 Ab Index Current interpretive data was last revised on 2016. Blood 02/16/2025 9:41 AM CDT 02/16/2025 9:53 AM CDT Dinora Reyes WIREWORKER SUPERVISOR LAB BLOOD ORDERABLES Final Result Performing Organization Address [facility] Co de Phone Number [facility] Department [place] [address] * Erythrocyte sedimentation rate (02/16/2025 9:41 AM CDT) Pathologist [facility] Erythrocyte sedimentation rate 14 1 - 30 mm/hr Blood 02/16/2025 9:41 AM CDT 02/16/2025 9:53 AM CDT Dinora Reyes WIREWORKER SUPERVISOR LAB BLOOD ORDERABLES Final Result Performing Organization Address [facility] de Phone Number [facility] [place] [address] * Rheumatoid factor (02/16/2025 9:41 AM CDT) Pathologist [facility] Rheumatoid factor, quant <10.0 0.1 - 15.0 IUnits/mL Blood 02/16/2025 9:41 AM CDT 02/16/2025 9:53 AM CDT Dinora Reyes WIREWORKER SUPERVISOR LAB BLOOD ORDERABLES Final Result Performing Organization Address [facility] [place] [facility] de Phone Number [facility] [place] [address] * CRP (acute phase) (02/16/2025 9:41 AM CDT) Pathologist [facility] CRP <0.5 <=10.0 mg/L Blood 02/16/2025 9:41 AM CDT 02/16/2025 9:53 AM CDT Dinora Reyes NP LAB BLOOD ORDERABLES Final Result [facility] [place] [address] * Comprehensive metabolic panel (02/16/2025 9:41 AM CDT) Sodium 141 135 - 145 mmol/L Potassium, pl 3.9 3.3 - 4.9 mmol/L [facility] Chloride 106 97 - 110 mmol/L [facility] CO2 29 22 - 32 mmol/L [facility] Anion gap 6 2 - 15 mmol/L [facility] BUN 12 6 - 25 mg/dL [facility] Creatinine 0.86 0.60 - 1.10 mg/dL [facility] Glucose 105 70 - 199 mg/dL [facility] Comment: Interpretive Data Fasting glucose >/= 126 mg/dl is diagnostic for diabetes. Fasting is defined as no caloric intake for at least 8 hours. Fasting glucose between 100 mg/dl to 125 mg/dl is diagnostic of prediabetes. In a patient with classic symptoms of hyperglycemia or hyperglycemic crisis, a random glucose >/= 200 mg/dl is diagnostic for diabetes. In the absence of unequivocal hyperglycemia, results should be confirmed by repeat testing. The classification and Diagnosis of Diabetes Diabetes Care 2021; 46: S19-S40. Current interpretive data was last revised 2022. Calcium 8.9 8.5 - 10.3 mg/dL [facility] Bilirubin, total 0.4 0.1 - 1.2 mg/dL [facility] Protein, pl 7.2 6.5 - 8.5 g/dL [facility] Albumin 3.9 3.5 - 5.0 g/dL [facility] Alk phos 56 40 - 130 Units/L [facility] ALT 31 7 - 45 Units/L [facility] AST 25 10 - 45 Units/L [facility] Blood 02/16/2025 9:41 AM CDT 02/16/2025 9:53 AM CDT Dinora Reyes WIREWORKER SUPERVISOR LAB BLOOD ORDERABLES Final Result [facility] [place] [address] * XR Foot Bilateral 3 or More Views of Each (02/16/2025 9:25 AM CDT) Anatomical Region Laterality Modality Lower Extremities, Foot Computed Radiography 02/16/2025 10:2 2 AM CDT Impressions 02/16/2025 10:22 AM CDT 1. Mild lower lumbar degenerative disc disease and facet osteoarthritis. 2. Normal radiographic examinations of the hands, right wrist, feet, and sacroiliac joints. Electronically signed by: Prasanth Reyes M.D. Narrative 02/16/2025 10:22 AM CDT EXAMINATION: XR FOOT BILATERAL 3 OR MORE VIEWS OF EACH, XR SPINE LUMBAR 2 OR 3 VIEWS, XR HAND BILATERAL 3 OR MORE VIEWS OF EACH, XR SACROILIAC JOINTS 3 OR MORE VIEWS, XR WRIST RIGHT 3 OR MORE VIEWS HISTORY: Polyarticular arthralgias FINDINGS: Sacroiliac joints: 3 view examination of the sacroiliac joints is read without comparison. The sacroiliac joint spaces are normal and symmetric. There is no erosion, sacroiliitis, or fracture. Lumbar spine: 2 view examination of the lumbar spine is read without comparison. There is mild degenerative disc disease at L3-L4 and L4-L5 and lower lumbar facet osteoarthritis. There is mild dextrocurvature. No compression fracture is present. Hands and right wrist: 3 view examination of the right wrist and 3 view examinations of both hands are performed. The joint spaces are normal and symmetric. There is no erosion, fracture, or periostitis. Feet: 3 view nonweightbearing examinations of both feet are read without comparison. The joint spaces are normal and symmetric. There is no fracture or erosion. Procedure Note Prasanth Reyes MD - 02/16/2025 EXAMINATION: XR FOOT BILATERAL 3 OR MORE VIEWS OF EACH, XR SPINE LUMBAR 2 OR 3 VIEWS, XR HAND BILATERAL 3 OR MORE VIEWS OF EACH, XR SACROILIAC JOINTS 3 OR MORE VIEWS, XR WRIST RIGHT 3 OR MORE VIEWS HISTORY: Polyarticular arthralgias FINDINGS: Sacroiliac joints: 3 view examination of the sacroiliac joints is read without comparison. The sacroiliac joint spaces are normal and symmetric. There is no erosion, sacroiliitis, or fracture. Lumbar spine: 2 view examination of the lumbar spine is read without comparison. There is mild degenerative disc disease at L3-L4 and L4-L5 and lower lumbar facet osteoarthritis. There is mild dextrocurvature. No compression fracture is present. Hands and right wrist: 3 view examination of the right wrist and 3 view examinations of both hands are performed. The joint spaces are normal and symmetric. There is no erosion, fracture, or periostitis. Feet: 3 view nonweightbearing examinations of both feet are read without comparison. The joint spaces are normal and symmetric. There is no fracture or erosion. IMPRESSION: 1. Mild lower lumbar degenerative disc disease and facet osteoarthritis. 2. Normal radiographic examinations of the hands, right wrist, feet, and sacroiliac joints. Electronically signed by: Prasanth Reyes M.D. Dinora Reyes NP IMG XR PROCEDURES Fin al Result * XR Hand Bilateral 3 or More Views of Each (02/16/2025 9:25 AM CDT) Anatomical Region Laterality Modality Upper Extremities, Hand Computed Radiography 02/16/2025 10:2 2 AM CDT Impressions 02/16/2025 10:22 AM CDT 1. Mild lower lumbar degenerative disc disease and facet osteoarthritis. 2. Normal radiographic examinations of the hands, right wrist, feet, and sacroiliac joints. Electronically signed by: Prasanth Reyes M.D. Narrative 02/16/2025 10:22 AM CDT EXAMINATION: XR FOOT BILATERAL 3 OR MORE VIEWS OF EACH, XR SPINE LUMBAR 2 OR 3 VIEWS, XR HAND BILATERAL 3 OR MORE VIEWS OF EACH, XR SACROILIAC JOINTS 3 OR MORE VIEWS, XR WRIST RIGHT 3 OR MORE VIEWS HISTORY: Polyarticular arthralgias FINDINGS: Sacroiliac joints: 3 view examination of the sacroiliac joints is read without comparison. The sacroiliac joint spaces are normal and symmetric. There is no erosion, sacroiliitis, or fracture. Lumbar spine: 2 view examination of the lumbar spine is read without comparison. There is mild degenerative disc disease at L3-L4 and L4-L5 and lower lumbar facet osteoarthritis. There is mild dextrocurvature. No compression fracture is present. Hands and right wrist: 3 view examination of the right wrist and 3 view examinations of both hands are performed. The joint spaces are normal and symmetric. There is no erosion, fracture, or periostitis. Feet: 3 view nonweightbearing examinations of both feet are read without comparison. The joint spaces are normal and symmetric. There is no fracture or erosion. Procedure Note Prasanth Reyes MD - 02/16/2025 EXAMINATION: XR FOOT BILATERAL 3 OR MORE VIEWS OF EACH, XR SPINE LUMBAR 2 OR 3 VIEWS, XR HAND BILATERAL 3 OR MORE VIEWS OF EACH, XR SACROILIAC JOINTS 3 OR MORE VIEWS, XR WRIST RIGHT 3 OR MORE VIEWS HISTORY: Polyarticular arthralgias FINDINGS: Sacroiliac joints: 3 view examination of the sacroiliac joints is read without comparison. The sacroiliac joint spaces are normal and symmetric. There is no erosion, sacroiliitis, or fracture. Lumbar spine: 2 view examination of the lumbar spine is read without comparison. There is mild degenerative disc disease at L3-L4 and L4-L5 and lower lumbar facet osteoarthritis. There is mild dextrocurvature. No compression fracture is present. Hands and right wrist: 3 view examination of the right wrist and 3 view examinations of both hands are performed. The joint spaces are normal and symmetric. There is no erosion, fracture, or periostitis. Feet: 3 view nonweightbearing examinations of both feet are read without comparison. The joint spaces are normal and symmetric. There is no fracture or erosion. IMPRESSION: 1. Mild lower lumbar degenerative disc disease and facet osteoarthritis. 2. Normal radiographic examinations of the hands, right wrist, feet, and sacroiliac joints. Electronically signed by: Prasanth Reyes M.D. Dinora Reyes WIREWORKER SUPERVISOR IMG XR PROCEDURES Fin al Result * X-ray wrist right 3+ views (02/16/2025 9:25 AM CDT) Anatomical Region Laterality Modality Upper Extremities, Wrist Right Compute d Radiography 02/16/2025 10:2 2 AM CDT Impressions 02/16/2025 10:22 AM CDT 1. Mild lower lumbar degenerative disc disease and facet osteoarthritis. 2. Normal radiographic examinations of the hands, right wrist, feet, and sacroiliac joints. Electronically signed by: Prasanth Reyes M.D. Narrative 02/16/2025 10:22 AM CDT EXAMINATION: XR FOOT BILATERAL 3 OR MORE VIEWS OF EACH, XR SPINE LUMBAR 2 OR 3 VIEWS, XR HAND BILATERAL 3 OR MORE VIEWS OF EACH, XR SACROILIAC JOINTS 3 OR MORE VIEWS, XR WRIST RIGHT 3 OR MORE VIEWS HISTORY: Polyarticular arthralgias FINDINGS: Sacroiliac joints: 3 view examination of the sacroiliac joints is read without comparison. The sacroiliac joint spaces are normal and symmetric. There is no erosion, sacroiliitis, or fracture. Lumbar spine: 2 view examination of the lumbar spine is read without comparison. There is mild degenerative disc disease at L3-L4 and L4-L5 and lower lumbar facet osteoarthritis. There is mild dextrocurvature. No compression fracture is present. Hands and right wrist: 3 view examination of the right wrist and 3 view examinations of both hands are performed. The joint spaces are normal and symmetric. There is no erosion, fracture, or periostitis. Feet: 3 view nonweightbearing examinations of both feet are read without comparison. The joint spaces are normal and symmetric. There is no fracture or erosion. Procedure Note Prasanth Reyes MD - 02/16/2025 EXAMINATION: XR FOOT BILATERAL 3 OR MORE VIEWS OF EACH, XR SPINE LUMBAR 2 OR 3 VIEWS, XR HAND BILATERAL 3 OR MORE VIEWS OF EACH, XR SACROILIAC JOINTS 3 OR MORE VIEWS, XR WRIST RIGHT 3 OR MORE VIEWS HISTORY: Polyarticular arthralgias FINDINGS: Sacroiliac joints: 3 view examination of the sacroiliac joints is read without comparison. The sacroiliac joint spaces are normal and symmetric. There is no erosion, sacroiliitis, or fracture. Lumbar spine: 2 view examination of the lumbar spine is read without comparison. There is mild degenerative disc disease at L3-L4 and L4-L5 and lower lumbar facet osteoarthritis. There is mild dextrocurvature. No compression fracture is present. Hands and right wrist: 3 view examination of the right wrist and 3 view examinations of both hands are performed. The joint spaces are normal and symmetric. There is no erosion, fracture, or periostitis. Feet: 3 view nonweightbearing examinations of both feet are read without comparison. The joint spaces are normal and symmetric. There is no fracture or erosion. IMPRESSION: 1. Mild lower lumbar degenerative disc disease and facet osteoarthritis. 2. Normal radiographic examinations of the hands, right wrist, feet, and sacroiliac joints. Electronically signed by: Prasanth Reyes M.D. Dinora Reyes NP IMG XR PROCEDURES Fin al Result * X-ray sacroiliac joints 3+ views (02/16/2025 9:25 AM CDT) Anatomical Region Laterality Modality Pelvis, Body N/A Computed Radiogr aphy 02/16/2025 10:2 2 AM CDT Impressions 02/16/2025 10:22 AM CDT 1. Mild lower lumbar degenerative disc disease and facet osteoarthritis. 2. Normal radiographic examinations of the hands, right wrist, feet, and sacroiliac joints. Electronically signed by: Prasanth Reyes M.D. Narrative 02/16/2025 10:22 AM CDT EXAMINATION: XR FOOT BILATERAL 3 OR MORE VIEWS OF EACH, XR SPINE LUMBAR 2 OR 3 VIEWS, XR HAND BILATERAL 3 OR MORE VIEWS OF EACH, XR SACROILIAC JOINTS 3 OR MORE VIEWS, XR WRIST RIGHT 3 OR MORE VIEWS HISTORY: Polyarticular arthralgias FINDINGS: Sacroiliac joints: 3 view examination of the sacroiliac joints is read without comparison. The sacroiliac joint spaces are normal and symmetric. There is no erosion, sacroiliitis, or fracture. Lumbar spine: 2 view examination of the lumbar spine is read without comparison. There is mild degenerative disc disease at L3-L4 and L4-L5 and lower lumbar facet osteoarthritis. There is mild dextrocurvature. No compression fracture is present. Hands and right wrist: 3 view examination of the right wrist and 3 view examinations of both hands are performed. The joint spaces are normal and symmetric. There is no erosion, fracture, or periostitis. Feet: 3 view nonweightbearing examinations of both feet are read without comparison. The joint spaces are normal and symmetric. There is no fracture or erosion. Procedure Note Prasanth Reyes MD - 02/16/2025 EXAMINATION: XR FOOT BILATERAL 3 OR MORE VIEWS OF EACH, XR SPINE LUMBAR 2 OR 3 VIEWS, XR HAND BILATERAL 3 OR MORE VIEWS OF EACH, XR SACROILIAC JOINTS 3 OR MORE VIEWS, XR WRIST RIGHT 3 OR MORE VIEWS HISTORY: Polyarticular arthralgias FINDINGS: Sacroiliac joints: 3 view examination of the sacroiliac joints is read without comparison. The sacroiliac joint spaces are normal and symmetric. There is no erosion, sacroiliitis, or fracture. Lumbar spine: 2 view examination of the lumbar spine is read without comparison. There is mild degenerative disc disease at L3-L4 and L4-L5 and lower lumbar facet osteoarthritis. There is mild dextrocurvature. No compression fracture is present. Hands and right wrist: 3 view examination of the right wrist and 3 view examinations of both hands are performed. The joint spaces are normal and symmetric. There is no erosion, fracture, or periostitis. Feet: 3 view nonweightbearing examinations of both feet are read without comparison. The joint spaces are normal and symmetric. There is no fracture or erosion. IMPRESSION: 1. Mild lower lumbar degenerative disc disease and facet osteoarthritis. 2. Normal radiographic examinations of the hands, right wrist, feet, and sacroiliac joints. Electronically signed by: Prasanth Reyes M.D. Dinora Reyes NP IMG XR PROCEDURES Fin al Result * X-ray lumbar spine 2 or 3 views (02/16/2025 9:25 AM CDT) Anatomical Region Laterality Modality Spine N/A Computed Radiogr aphy 02/16/2025 10:2 2 AM CDT Impressions 02/16/2025 10:22 AM CDT 1. Mild lower lumbar degenerative disc disease and facet osteoarthritis. 2. Normal radiographic examinations of the hands, right wrist, feet, and sacroiliac joints. Electronically signed by: Prasanth Reyes M.D. Narrative 02/16/2025 10:22 AM CDT EXAMINATION: XR FOOT BILATERAL 3 OR MORE VIEWS OF EACH, XR SPINE LUMBAR 2 OR 3 VIEWS, XR HAND BILATERAL 3 OR MORE VIEWS OF EACH, XR SACROILIAC JOINTS 3 OR MORE VIEWS, XR WRIST RIGHT 3 OR MORE VIEWS HISTORY: Polyarticular arthralgias FINDINGS: Sacroiliac joints: 3 view examination of the sacroiliac joints is read without comparison. The sacroiliac joint spaces are normal and symmetric. There is no erosion, sacroiliitis, or fracture. Lumbar spine: 2 view examination of the lumbar spine is read without comparison. There is mild degenerative disc disease at L3-L4 and L4-L5 and lower lumbar facet osteoarthritis. There is mild dextrocurvature. No compression fracture is present. Hands and right wrist: 3 view examination of the right wrist and 3 view examinations of both hands are performed. The joint spaces are normal and symmetric. There is no erosion, fracture, or periostitis. Feet: 3 view nonweightbearing examinations of both feet are read without comparison. The joint spaces are normal and symmetric. There is no fracture or erosion. Procedure Note Prasanth Reyes MD - 02/16/2025 EXAMINATION: XR FOOT BILATERAL 3 OR MORE VIEWS OF EACH, XR SPINE LUMBAR 2 OR 3 VIEWS, XR HAND BILATERAL 3 OR MORE VIEWS OF EACH, XR SACROILIAC JOINTS 3 OR MORE VIEWS, XR WRIST RIGHT 3 OR MORE VIEWS HISTORY: Polyarticular arthralgias FINDINGS: Sacroiliac joints: 3 view examination of the sacroiliac joints is read without comparison. The sacroiliac joint spaces are normal and symmetric. There is no erosion, sacroiliitis, or fracture. Lumbar spine: 2 view examination of the lumbar spine is read without comparison. There is mild degenerative disc disease at L3-L4 and L4-L5 and lower lumbar facet osteoarthritis. There is mild dextrocurvature. No compression fracture is present. Hands and right wrist: 3 view examination of the right wrist and 3 view examinations of both hands are performed. The joint spaces are normal and symmetric. There is no erosion, fracture, or periostitis. Feet: 3 view nonweightbearing examinations of both feet are read without comparison. The joint spaces are normal and symmetric. There is no fracture or erosion. IMPRESSION: 1. Mild lower lumbar degenerative disc disease and facet osteoarthritis. 2. Normal radiographic examinations of the hands, right wrist, feet, and sacroiliac joints. Electronically signed by: Prasanth Reyes M.D. Dinora Reyes WIREWORKER SUPERVISOR IMG XR PROCEDURES Fin al Result * Segundo Post Clip Placement Left (01/05/2025 12:59 PM CDT) Anatomical Region Laterality Modality Breast Left Mammography 01/05/2025 1:02 PM CDT Addenda Addendum by Patricia Vaughn MD on 01/08/2025 2:32 PM CDT PATHOLOGY RESULTS: Diagnosis: Breast, left, central lower, stereotactic guided core needle biopsy of calcifications - Benign breast tissue with microcalcifications seen in association with columnar cell changes, microcysts, and benign lobules - No evidence of atypia or malignancy Please refer to pathology report for details. Pathology is benign and concordant. Normal interval screening mammography is recommended. Results and recommendations will be discussed with the patient by [facility] or Breast Surgical Oncology staff. Electronically signed by: Patricia Vaughn M.D. Impressions 01/05/2025 4:54 PM CDT Successful vacuum-assisted core needle biopsy of the LEFT breast calcifications at the 6:00 position. Accurate placement of the mini Cork tissue marker clip. Pathology is pending. ASSESSMENT: Post Procedure Mammograms for Marker Placement Dictated by: Tina Horvath MD The radiology attending physician has personally reviewed this study, and had reviewed and/or edited this written report and agrees with it. Electronically signed by: Patricia Vaughn M.D. Narrative 01/05/2025 4:54 PM CDT EXAMINATION: LEFT STEREOTACTIC BREAST VACUUM-ASSISTED CORE BIOPSY UTILIZING TOMOSYNTHESIS AND STEREOTACTIC GUIDANCE, PLACEMENT OF A BIOPSY SITE TISSUE MARKER CLIP, AND LEFT FULL FIELD DIGITAL MAMMOGRAM WITH DIGITAL BREAST TOMOSYNTHESIS HISTORY: Abnormal mammogram. 49-year-old female with group of amorphous calcifications at the 6 o'clock position in the LEFT breast (BI-RADS 4A) Image guided core needle biopsy is requested to evaluate for malignancy. COMPARISON: Diagnostic mammogram 12/21/2024 BREAST PARENCHYMAL COMPOSITION: The breasts are heterogeneously dense, which may obscure small masses. PROCEDURE AND FINDINGS: The risks and potential benefits of the procedures were discussed with the patient and written informed consent was obtained. After a time-out procedure, the patient was placed in the prone position on the biopsy unit. The area of interest was localized and targeted utilizing digital imaging with tomosynthesis and stereotaxis. After sterile preparation of the skin, 1% lidocaine and 2% lidocaine with epinephrine were utilized for local anesthesia. A small skin incision was made with a #11 scalpel blade and a 9 gauge Brevera vacuum-assisted biopsy needle was advanced to the area of interest from an inferior approach utilizing stereotactic guidance. A total of 6 tissue cores were then obtained; these were submitted to surgical pathology in formalin for histologic analysis. The specimen radiograph demonstrates that the calcifications of interest are included within the tissue cores. A Event [employer]dim[employer] Mini Cork tissue marker clip was placed at the biopsy site. The needle was removed, hemostasis was achieved, and Dermabond was applied. There was no evidence of significant immediate complication. The patient was given verbal as well as written post procedural instructions prior to release from the department. A two-view LEFT digital mammogram, including digital breast tomosynthesis, post procedure demonstrates that the tissue marker clip is in the expected position. The attending radiologist, Dr. Patricia Vaughn M.D., was present throughout the entire procedure. Dr. Tina Horvath (breast imaging fellow) also participated in this examination. Clarence Owusu MD IMG MAMMO PROCEDURES [place] Result - Final * Stereotactic Breast Biopsy Left (01/05/2025 12:59 PM CDT) Anatomical Region Laterality Modality Breast Left Mammography 01/05/2025 1:02 PM CDT Addenda Addendum by Patricia Vaughn MD on 01/08/2025 2:32 PM CDT PATHOLOGY RESULTS: Diagnosis: Breast, left, central lower, stereotactic guided core needle biopsy of calcifications - Benign breast tissue with microcalcifications seen in association with columnar cell changes, microcysts, and benign lobules - No evidence of atypia or malignancy Please refer to pathology report for details. Pathology is benign and concordant. Normal interval screening mammography is recommended. Results and recommendations will be discussed with the patient by Breast [facility] or Breast Surgical Oncology staff. Electronically signed by: Patricia Vaughn M.D. Impressions 01/05/2025 4:54 PM CDT Successful vacuum-assisted core needle biopsy of the LEFT breast calcifications at the 6:00 position. Accurate placement of the mini Cork tissue marker clip. Pathology is pending. ASSESSMENT: Post Procedure Mammograms for Marker Placement Dictated by: Tina Horvath MD The radiology attending physician has personally reviewed this study, and had reviewed and/or edited this written report and agrees with it. Electronically signed by: Patricia Vaughn M.D. Narrative 01/05/2025 4:54 PM CDT EXAMINATION: LEFT STEREOTACTIC BREAST VACUUM-ASSISTED CORE BIOPSY UTILIZING TOMOSYNTHESIS AND STEREOTACTIC GUIDANCE, PLACEMENT OF A BIOPSY SITE TISSUE MARKER CLIP, AND LEFT FULL FIELD DIGITAL MAMMOGRAM WITH DIGITAL BREAST TOMOSYNTHESIS HISTORY: Abnormal mammogram. 49-year-old female with group of amorphous calcifications at the 6 o'clock position in the LEFT breast (BI-RADS 4A) Image guided core needle biopsy is requested to evaluate for malignancy. COMPARISON: Diagnostic mammogram 12/21/2024 BREAST PARENCHYMAL COMPOSITION: The breasts are heterogeneously dense, which may obscure small masses. PROCEDURE AND FINDINGS: The risks and potential benefits of the procedures were discussed with the patient and written informed consent was obtained. After a time-out procedure, the patient was placed in the prone position on the biopsy unit. The area of interest was localized and targeted utilizing digital imaging with tomosynthesis and stereotaxis. After sterile preparation of the skin, 1% lidocaine and 2% lidocaine with epinephrine were utilized for local anesthesia. A small skin incision was made with a #11 scalpel blade and a 9 gauge Brevera vacuum-assisted biopsy needle was advanced to the area of interest from an inferior approach utilizing stereotactic guidance. A total of 6 tissue cores were then obtained; these were submitted to surgical pathology in formalin for histologic analysis. The specimen radiograph demonstrates that the calcifications of interest are included within the tissue cores. A Event [employer] Mini Cork tissue marker clip was placed at the biopsy site. The needle was removed, hemostasis was achieved, and Dermabond was applied. There was no evidence of significant immediate complication. The patient was given verbal as well as written post procedural instructions prior to release from the department. A two-view LEFT digital mammogram, including digital breast tomosynthesis, post procedure demonstrates that the tissue marker clip is in the expected position. The attending radiologist, Dr. Patricia Vaughn M.D., was present throughout the entire procedure. Dr. Tina Horvath (breast imaging fellow) also participated in this examination. us Clarence Owusu MD IMG MAMMO PROCEDURES [facility] Result - Final * Surgical pathology (01/05/2025 11:00 AM CDT) Tissue (Breast biopsy, needle core) 01/05/2025 11:00 AM CDT Comment:Left breast calcific ations central lower birads 4a stereo biopsy Narrative PATHOLOGY [facility] - 01/07/2025 3:55 PM CDT EPIC results best viewed via link to PDF [facility] [place] [address] Note to Patients: This report may contain a detailed description of human tissue sent by a health care provider to the laboratory for pathologic evaluation. The content of this report is essential for diagnosis and may provide important critical findings. This information may be unfamiliar to patients to review without a medical professional present. It is advised that the patient review this report in the presence of a health care provider who can answer questions and explain the details. SURGICAL PATHOLOGY REPORT FINAL Patient Name: ALEX SLADE Gender: F : 1975 (Age: 49) Address: [address] [place], [place] [id number] Hospital #: [id number] Taken:01/05/2025 Received:01/05/2025 Reported: 01/07/2025 Patient Type: [facility] Ancillary Service: UNKNOWN Location: Physician(s): Wilbert Fung DO Diagnosis: Breast, left, central lower, stereotactic guided core needle biopsy of calcifications - Benign breast tissue with microcalcifications seen in association with columnar cell changes, microcysts, and benign lobules - No evidence of atypia or malignancy sucr/01/07/2025 15:55 By this signature, I attest that the above diagnosis is based upon my personal examination of the slides(and/or other material indicated in the diagnosis). Liz Cartwright M.D. Report Electronically Reviewed and Signed Out By Liz Cartwright M.D. 01/07/2025 15:55:01 Microscopic Description and Comment: Microscopic examination substantiates the above cited diagnosis. No atypical hyperplasia, carcinoma in situ, or carcinoma is identified. Clarisse Metz M.D. History: The patient is a 49-year-old woman presenting for abnormal mammogram. Operative procedure: Left breast biopsy, BI-RADS 4A. Specimen(s) Received: A: Left breast calcifications central lower BIRADS 4A stereo biopsy Gross Description: Received in formalin, labeled with the patient s identifiers and left breast calcs central lower BI-RADS 4A stereo are eight yellow and white, hemorrhagic cores of fibrofatty tissue (2.3-2.8 cm each in length by 0.3 cm in diameter). The cores designated on the jar lid are labeled A1 to A2 and the remaining cores are labeled A3 to A4. Jar 0. Placed in formalin immediately after collection. Total fixation time= 8.0 hours. sxst/01/05/2025 16:52 PA(s): Kindra Centeno By this signature, I attest that the above diagnosis is based upon my personal examination of the slides(and/or other material). Addenda/Procedures The performance characteristics of some immunohistochemical stains, fluorescence in-situ hybridization tests and immunophenotyping by flow cytometry cited in this report (if any) were determined by the Surgical Pathology and Flow Cytometry Departments at [facility] as part of an ongoing director of quality control program and in compliance with federally mandated regulations drawn from the Clinical Laboratory Improvement Act of 1988 (CLIA '88). Some of these tests rely on the use of analyte specific reagents and are subject to specific labeling requirements by the US Food and Drug Administration. Such diagnostic tests may only be performed in a facility that is certified by the Department of Health and Human Services as a high complexity laboratory under CLIA '88. The FDA has determined that such clearance or approval is not necessary. This test is used for clinical purposes. It should not be regarded as investigational or for research. Nevertheless, federal rules concerning the medical use of analyte specific reagents require that the following disclaimer be attached to the report: This test was developed and its performance characteristics determined by the Surgical Pathology and Flow Cytometry Departments of [facility]. It has not been cleared or approved by the U. S. Food and Drug Administration. IMAGES AND SCANNED DOCUMENTS, IF INCLUDED, ONLY VIEWABLE IN PDF VERSION OF REPORT us Clarence Owusu MD LAB PATHOLOGY ORDERABLES Final Result PATHOLOGY [facility] 3rd Floor [place], [place] [phone] * (ABNORMAL) Diagnostic Mammogram Left W Segundo (12/21/2024 11:07 AM CDT) Anatomical Region Laterality Modality Breast Left Mammography 12/21/2024 12:2 1 PM CDT Impressions 12/21/2024 12:21 PM CDT Unchanged 4 mm group of amorphous calcifications at the 6 o'clock position in the left breast, which is at low suspicion for malignancy (BI-RADS 4A). The method of initial detection of finding was 3D screening mammography (Sdbt). OVERALL FINAL ASSESSMENT: SUSPICIOUS. BI-RADS Category 4A: Low suspicion for malignancy. RECOMMENDATION: Stereotactic biopsy of the grouped amorphous calcifications in the left breast at 6:00. Dr. Adry Perdomo discussed the above findings and recommendations with the patient. Due to the patient's vasovagal response during the prior upright stereotactic biopsy, recommend prone stereotactic biopsy. She has been scheduled to return to [facility] for biopsy on 01/05/2025 at 11:15 AM. This facility will contact the referring clinician's office for an order. The radiology attending physician has personally reviewed this study, and had reviewed and/or edited this written report and agrees with it. Electronically signed by: Wilbert Cheney 12/21/2024 12:21 PM CDT EXAMINATION: LEFT UNILATERAL DIGITAL DIAGNOSTIC MAMMOGRAM AND DIGITAL BREAST TOMOSYNTHESIS HISTORY: 49-year-old woman with grouped calcifications noted in the lower outer left breast. Image guided core needle biopsy was attempted in August 2024, but was not able to be completed due to the patient's vasovagal response. Delayed COMPARISON: Multiple prior studies, most recently 07/21/2024 and dating back to 06/21/2023. TECHNIQUE: Full field digital mammographic views of the LEFT breast were performed, including computer aided detection (CAD) and digital breast tomosynthesis (DBT). BREAST PARENCHYMAL COMPOSITION: The breasts are heterogeneously dense, which may obscure small masses. MAMMOGRAM FINDINGS: There is an unchanged 4 mm group of amorphous calcifications at the 6 o'clock position in the left breast. Clarence Owusu MD [facility] [place] MAMMO PROCEDURES Fin al Result * (ABNORMAL) Screening Mammogram Bilateral W Segundo (06/23/2024 12:42 PM RIM FIRE [employer]IMING TOOL SETTER) Anatomical Region Laterality Modality Breast Bilateral Mammography 06/23/2024 1:09 PM RIM [employer] PRIMING TOOL SETTER Impressions 06/23/2024 1:09 PM RIM FI[employer]IMING TOOL SETTER New grouped amorphous calcifications in the 6:00 left breast. Additional imaging recommended. FINAL ASSESSMENT: BI-RADS Category 0: Incomplete - Need Additional Imaging Evaluation. RECOMMENDATION: Findings in the left breast require additional evaluation. A diagnostic mammogram of the left breast is recommended at this time. Electronically signed by: SELINA SINGH MD Narrative 06/23/2024 1:09 PM RIM FI[employer] PRIMING TOOL SETTER EXAMINATION: BILATERAL SCREENING MAMMOGRAM COMPARISON: All prior mammograms dating back to 2018. TECHNIQUE: Full-field 2D and digital breast tomosynthesis (DBT) images were obtained. CAD was utilized. BREAST PARENCHYMAL COMPOSITION: The breasts are heterogenously dense, which may obscure small masses. FINDINGS: There are new grouped amorphous calcifications in the 6:00 left breast. No new suspicious abnormality in the right breast. us Self Screening Mammogram [facility] [place] MAMMO PROCEDURES Fi nal Result * Colonoscopy (03/06/2024 7:59 AM CDT) Anatomical Region Laterality Modality Other Narrative Procedure Note Leigha Sheldon MD - 03/06/2024 7:59 AM CDT ENDOSCOPY LAB Patient Name: Alex Slade Procedure Date: 03/06/2024 7:59 AM Date of : 1975 Admit Type: Outpatient Age: 48 Gender: Female Attending MD: Leigha Sheldon M.D. Room: [facility] ENDOSCOPY ROOM 05 Note Status: Finalized Procedure: [...] The scope was passed under direct vision.The [id number] was introduced through the anusand advanced to [...] Most Recently Relevant to Health Maintenance Insurance [facility] H[facility]/PPO Address: 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
--- OUTSIDE RECORDS SUMMARY | 2025-03-04 16:32 | XMS_ITS | Clinical Summary ---
Author Organization [facility] Address [address] [place] [address] Care Team Providers Care Boatbuilder Wood Name Role Phone Pravin Lewis DO Primary Care Provider [phone] Source Comments [facility],non-owned Affiliates and Associated Physician Practices is amultiple site organization consisting of ambulatory clinics and hospital sitesin [place] and [place]. This disclosure is being madepursuant to the Care Everywhere program and may not contain all information available regarding this patient. Last updated 18.[facility] Allergies Active Allergy Reactions Criticality Noted Date Comments Sulfa Drugs Rash Medium 11/28/2017 Medications * Be aware that medications may not be up to date on this document. Alwaysverify current medications with the patient. InFLIXimab (REMICADE IV) Active Mesalamine (LIALDA PO) Active ALLOPURINOL PO Activ e MERCAPTOPURINE PO Ac tive Cetirizine HCl (ZYRTEC PO) Active IBUPROFEN PO Active OV-Jxuppxlxbqitw-L cetaminophen (THERAFLU SEVERE COLD PO) Active Active [...] on file Legal Sex Female 6:06 AM [employer] Gender Identity Female 08/15/2018 5:53 PM CDT Sexual Orientation Not on file Last Filed Vital Signs Vital Sign Reading Time Taken Comments Blood Pressure 110/78 03/29/2019 9:43 AM [employer] Pulse 83 03/29/2019 9:43 AM [employer] Temperature 36.7 C (98.1 F) 03/29/2019 9:43 AM [employer] Respiratory Rate 16 03/29/2019 9:43 AM [employer] Oxygen Saturation 96% 03/29/2019 9:43 AM [employer] Inhaled Oxygen Concentration - - Weight 77.1 kg (170 lb) 03/29/2019 9:43 AM [employer] Height 162.6 cm (5' 4) 03/29/2019 9:43 AM [employer] Body Mass Index 29.18 03/29/2019 9:43 AM [employer]ER Plan of Treatment Health Maintenance Due Date [...] SCREENING FOR DIABETES 11/28/2017 MAMMOGRAM 06/20/2022 06/20/2020 DEPRESSION SCREENING 05/20/2024 PNEUMOCOCCAL VACCINE 50+ (1 of 1 - PCV) 2024 ZOSTER VACCINE (1 of 2) 2024 COVID-19 VACCINE (1 - 2023- season) 2025 INFLUENZA VACCINE (#1) 2025 0, 01/11/2019, 02/10/2018, [...] patient's age to complete this topic Insurance [facility] Care Teams Boatbuilder Wood Relationship Specialty Start Date End Date Pravin Lewis DO PCP - General Internal Medicine 11/28/17
[2025-03-04 19:22] LABS: Non Pathogenic Casts 0-2
[2025-03-04 19:24] LABS: Add Urine Microscopic? YES; Appearance Urine Clear (Clear); Glucose Urine UA Negative (Negative); Leukocyte Esterase Ur 3+ LEU/UL (Negative); Nitrate Urine Negative (Negative); Specific Grav Ur 1.007 (1.001-1.035)
== END 2025-03-04 14:26 | disposition home or self-care (01) ==
LOC: ANHGOSHLAB 14:26
PROVIDERS: PCP Nurse Practitioner; Visit Provider Nurse Practitioner
DX: R35.0 Frequency of micturition (principal)
CPT/HCPCS: 81001; 87077; 87086; 87186

== ENCOUNTER 2025-04-27 10:39 | Outpatient (CLI) | payer OTHER, SELFPAY ==
[2025-04-27 11:18] LABS: Hematocrit 43.0 % (37.0-47.0); Hemoglobin 14.8 g/dL (12.0-15.0); Immature Granulocyte Percent A 0.4 % (0-0.5); Lymphocytes Absolute Auto 1.88 K/mm3 (0.9-3.2); Mean Corpuscular HGB Conc 34.4 g/dl (32-36); Mean Corpuscular Hemoglobin 35.9 pg (26-34); Mean Corpuscular Volume 104.4 fl (80-100); Nucleated Red Blood Cells Absolute Auto 0.000 K/mm3 (0.0-0.012); Nucleated Red Blood Cells Perc 0.0 % (0.0-0.2); Platelet Count Result 292 k/mm3 (150-375); Red Blood Count 4.12 M/mm3 (4.2-5.4); White Blood Count 5.7 K/mm3 (4.5-10.0)
[2025-04-27 11:33] LABS: Alanine Aminotransferase 44 U/L (6-35); Albumin Level 4.4 g/dL (3.5-5.1); Alkaline Phosphatase 65 U/L (38-126); Anion Gap 7 mmol/L (4-12); Aspartate Amino Transferase 37 U/L (14-36); Bilirubin,Total 0.8 mg/dL (0.2-1.3); Blood Urea Nitrogen 10 mg/dL (7-17); CRP < 0.5 mg/dL (<1.0); Calcium 9.2 mg/dL (8.4-10.2); Carbon Dioxide 24 mmol/L (22-30); Chloride 104 mmol/L (98-107); Estimated Glomerular Filt Rate > 60; Glucose 102 mg/dL (65-110); Potassium 3.7 mmol/L (3.4-5.0); Sodium 135 mmol/L (137-145); Total Protein 8.4 g/dL (6.3-8.2); Uric Acid 2.4 mg/dL (2.5-7.5)
[2025-04-27 11:47] LABS: Free T4 Free Thyroxine 0.68 ng/dL (0.78-2.19)
[2025-04-27 12:07] LABS: Thyroid Stimulating Hormone 0.028 uIU/mL (0.465-4.680)
== END 2025-04-27 10:40 | disposition home or self-care (01) ==
PROVIDERS: PCP Nurse Practitioner; Visit Provider Nurse Practitioner
DX: M45.0 Ankylosing spondylitis of multiple sites in spine (principal); K50.90 Crohn's disease, unspecified, without complications; R76.81 Abnormal rheumatoid factor and anti-citrullinated protein antibody without rheumatoid arthritis; D80.3 Selective deficiency of immunoglobulin G [IgG] subclasses; E04.2 Nontoxic multinodular goiter
CPT/HCPCS: 36415; 80053; 84439; 84443; 84550; 85025; 86140